=== PATIENT | female | born 1955 | race Caucasian/White ===

== ENCOUNTER 2016-12-15 08:43 | Inpatient (IN) ==
[2016-12-15] MEDS ORDERED: Vancomycin 1,000 MG VIAL IVPB ONE (09:58)
[2016-12-15] MEDS ORDERED: 0.9 % Sodium Chloride 1,000 ML IVC ONE (09:58)
--- NOTE | 2016-12-15 09:58 | Emergency Department Note ---
Disposition Clinical Impression: Cellulitis Disposition: Admitted As Inpatient Condition: Fair Referrals: Ashley Sandoval MD [Primary Care Provider] - Forms: ED Satisfaction Letter Time of Disposition: 11:34 General Adult HPI - General Chief complaint: ED Skin/Abscess/Foreign Body Stated complaint: "cellulitis" Time Seen by Provider: 12/15/16 09:36 Source: patient Mode of arrival: private vehicle Limitations: no limitations Nursing Notes Reviewed: Yes Vital Signs Reviewed: Yes - History of Present Illness HPI Narrative: 61-year-old female patient presents to the emergency department with complaint of cellulitis to her face. Patient was seen at an urgent care 48 hours ago and was prescribed Bactrim and Keflex. Patient states that she has been taking the medication as prescribed but has not had any improvement in her symptoms. Patient complains of redness and swelling to her forehead and upper eyelids. She denies any known exposures. She denies any allergic reactions. She denies any fever, however states that she has had some chills and rigors. She denies any nausea, vomiting, abdominal pain, chest pain, shortness of breath, dizziness or lightheadedness. Onset (ago): day(s) Location: face Radiation: non-radiation Pain Severity: severe Pain Scale: 10 Consistency: constant Improves with: nothing Worsens with: other (Palpation) Associated symptoms: Reports: fever/chills Treatments Prior to Arrival: other (Bactrim and Keflex) - Related Data Previous Rx's Medication Instructions Recorded Clindamycin [Cleocin] 150 mg PO Q6HR #8 capsule 11/04/15 OxyCODONE Immed Rel [Roxicodone 5 5 - 10 mg PO Q6HR PRN #30 tablet 11/04/15 MG] Allergies Allergy/AdvReac Type Severity Reaction Status Date / Time Erythromycin Base Allergy Rash Verified 10/26/15 15:10 Fish Containing Products Allergy Hives Verified 10/26/15 15:10 fish derived Allergy Hives Verified 10/26/15 15:10 fish oil Allergy Hives Verified 10/26/15 15:10 Hydromorphone [From Dilaudid] Allergy Rash Verified 10/26/15 15:10 morphine Allergy Rash Verified 10/26/15 15:10 All systems ED: reviewed and negative except as stated. Constitutional: Reports: chills. Denies: fever Eyes: Reports: other (Facial pain) Cardiovascular: Denies: chest pain Respiratory: Denies: cough, dyspnea Gastrointestinal: Denies: abdominal pain, nausea, vomiting Musculoskeletal: Denies: back pain, neck pain Integumentary: Reports: other (Redness and swelling to the face.). Denies: rash , abrasion, lesions Neurological: Denies: headache Psychiatric: Denies: anxiety, depression, suicidal thoughts, homicidal thoughts Past Medical History - Past Medical History Attestation: Yes The following information was validated with the patient. Source: patient, nursing notes reviewed Medical history: Reports: arthritis, GERD, RA, TIA, other Surgical history: Reports: , cataract, cholecystectomy, hysterectomy, knee replacement, other Psychiatric history: Reports: anxiety, depression - Social History Smoking Status: Never smoker Smokeless Tobacco Status: No Alcohol use: Reports: none Drug use: Reports: none Physical Exam - General Limitations: no limitations General appearance: alert, in no apparent distress - Head Head exam: atraumatic, normocephalic, normal inspection - Eye Eye exam: Present: normal appearance, PERRL - Neck Neck exam: Present: normal inspection, full ROM, trachea midline - Chest Chest inspection: Present: normal inspection, symmetric chest wall rise - Respiratory Respiratory exam: Present: normal lung sounds bilaterally. Absent: respiratory distress - Cardiovascular Cardiovascular exam: Present: regular rate, normal rhythm, normal heart sounds Course - Consultations Consultation #1: I discussed this patient's case with the hospitalist, Dr. Oseguera, he accepts the patient for admission. Vancomycin is currently being administered. Labs within normal limits except for some mild renal insufficiency for which the patient is receiving IV fluids. Patient verbalizes understanding and agreement with plan of care. Time: 11:40 Vital Signs Temperature 98.8 F 12/15/16 09:07 Pulse Rate 88 12/15/16 09:07 Respiratory Rate 16 12/15/16 09:07 Blood Pressure 109/66 12/15/16 09:07 O2 Sat by Pulse Oximetry 96 12/15/16 09:07 Temperature 98.8 F 12/15/16 09:07 Pulse Rate 74 12/15/16 11:10 Respiratory Rate 17 12/15/16 11:10 Blood Pressure 109/65 12/15/16 11:10 O2 Sat by Pulse Oximetry 95 12/15/16 11:10 Oxygen Delivery Oxygen Delivery Room Air Medical Decision Making - Lab Data Result diagrams: 12/15/16 10:18 12/15/16 10:18 Lab Results 12/15/16 12/15/16 Range/Units 10:18 10:18 WBC 4.3 (4.3-11.1) K/mcL RBC 3.42 L (3.82-4.97) M/mcL Hgb 11.5 (11.5-15.4) g/dL Hct 34.6 L (35.3-44.9) % MCV 101.2 H (83.0-100.0) fL MCH 33.6 H (28.0-33.3) pg MCHC 33.2 (31.6-35.5) g/dL RDW 13.5 (11.5-14.5) % Plt Count 154 (140-400) K/mcL MPV 10.1 (9.4-12.4) fL Seg Neutrophils % 80.0 % Band Neutrophils % 18.0 H (0-4) % Lymphocytes % 1.0 % Monocytes % 1.0 % Neutrophils # 4.2 (1.6-8.9) K/mcL Lymphocytes # 0.0 L (0.6-4.6) K/mcL Monocytes # 0.0 (0.0-1.3) K/mcL Dohle Bodies Present A (Not Present) Platelet Estimate Normal (Normal) Sodium 143 (136-145) mEq/L Potassium 3.3 L (3.5-4.5) mEq/L Chloride 107 (98-109) mEq/L Carbon Dioxide 27 (19-29) mEq/L BUN 39 H (7-20) mg/dL Creatinine 1.53 H (0.57-1.11) mg/dL Est GFR ( Amer) 42 L (> 60) Est GFR (Non-Af Amer) 35 L (> 60) BUN/Creatinine Ratio 25 (6-26) Glucose 121 H (70-99) mg/dL Calculated Osmolality 307 H (280-300) Calcium 8.2 L (8.6-10.8) mg/dL Attestation Statement - Attestation Attestation: For this encounter, I have reviewed the [employer] HELPER or PA documentation, treatment plan, and medical decision making; and I have had face to face time with this patient. 61-year-old presents with erythematous warm rash to the forehead and bilateral eyelids. The rash is not pruritic in nature. She was started on antibiotics without improvement. Skull examination erythema well demarcated rash on the forehead into the scalp and on the upper eyelids. No significant pain with eye movement does not appear to be a septal cellulitis. Labs show a normal white count. Patient was given IV vancomycin. The PA spoke to admitting physician were going to admit for IV antibiotics failure of outpatient treatment.
[2016-12-15] MEDS ORDERED: D5% in Water 250 ML ONE ×2 (10:21→10:40)
[2016-12-15 10:34] LABS: Hematocrit 34.6 % (35.3-44.9); Hemoglobin 11.5 g/dL (11.5-15.4); Mean Corpuscular HGB Conc 33.2 g/dL (31.6-35.5); Mean Corpuscular Hemoglobin 33.6 pg (28.0-33.3); Mean Corpuscular Volume 101.2 fL (83.0-100.0); Mean Platelet Volume 10.1 fL (9.4-12.4); Platelet Count 154 K/mcL (140-400); Red Blood Count 3.42 M/mcL (3.82-4.97); Red Cell Distribution Width 13.5 % (11.5-14.5)
[2016-12-15 10:47] LABS: Calcium 8.2 mg/dL (8.6-10.8); Potassium 3.3 mEq/L (3.5-4.5)
[2016-12-15 10:54] LABS: Neutrophils # 4.2 K/mcL (1.6-8.9); Platelet Estimate Normal (Normal)
[2016-12-15 10:55] LABS: Dohle Bodies Present (Not Present)
[2016-12-15] MEDS ORDERED: Vancomycin 1,000 MG in D5% in Water 250 ML IVPB ONE (11:01)
--- NOTE | 2016-12-15 13:09 | Event Note ---
Date of Encounter: 12/15/16 Time of Encounter: 13:05 Patient seen and examined with nurse jennifer. Patient with prior history of MRSA cellulitis, CKD stage 3 and what looks like 2ry hyperparathyroidism ( according to reviewing prior labs) presents to the hospital today 2 days after failed outpatient treatment with Bactrim and Keflex of cellulitis that started in the forehead. He notes that redness warmth tenderness is extending to involve all her 4 head and eyelids. She is afebrile without leukocytosis on arrival to the ER. She would be started on vancomycin Zosyn. Blood cultures. She also has rheumatoid arthritis and is on chronic prednisone therapy 10 mg daily and we will continue that. she is not hypotensive so there is no need for stress doses of steroids. Lesions do not appear allergic in nature or Due to vasculitis. Heparin and famotidine for DVT and peptic ulcer disease prophylaxis respectively. Full code. Inpatient admission
--- NOTE | 2016-12-15 15:41 | Internal Med History&Physical ---
Date of Encounter: 12/15/16 Time of Encounter: 15:00 Assessment and Plan (1) Cellulitis Current visit: Yes Status: Acute Assess: Patient presents with cellulitis of the scalp, forehead and eyelids which are erythematous, swollen, and warm to the touch. Patient has a history of MRSA, so skin culture ordered and contact precautions issued until culture is returned negative. Plan: Vancomycin ordered (pharmacy to dose) Zosyn ordered Apply cold compresses to face Pain medications continued Continue prednisone Culture ordered to rule out MRSA Qualifiers: Site of cellulitis: face Qualified Code(s): L03.211 - Cellulitis of face (2) TIA (transient ischemic attack) Current visit: Yes Status: Chronic Assess: Patient reports history of TIAs and family history of HD and MIs. Plan: Continue Plavix 0.9 NS IV fluids ordered at 60mL/hr Qualifiers: Transient cerebral ischemia type: unspecified Qualified Code(s): G45.9 - Transient cerebral ischemic attack, unspecified (3) Rheumatoid arthritis Current visit: Yes Status: Chronic Assess: Patient reports history of RA. Plan: Continue pain medications Continue prednisone Monitor patient for pain Qualifiers: Rheumatoid arthritis location: hand Rheumatoid factor presence: unspecified presence Laterality: bilateral Qualified Code(s): M06.9 - Rheumatoid arthritis, unspecified (4) Fibromyalgia Current visit: Yes Status: Chronic Assess: Patient reports history of fibromyalgia. Plan: Continue pain medications Continue prednisone Monitor patient for pain (5) DVT prophylaxis Current visit: Yes Status: Acute Assess: Patient placed on DVT prophylaxis due to inpatient status and sedentary nature due to pain related to RA and fibromyalgia. Plan: Continue Plavix Internal Medicine - H&P: HPI Chief complaint: Cellulitis Admitted From: Emergency Dept Plans for Post Hospital Care: Home History of present illness: Ms. Serrano is a 61 year old female who presents from the ED today with a chief complaint of cellulitis with swelling and erythema of the scalp, forehead , and eyes. Patient reports that she woke up this morning and her eyes were swollen shut and her scalp was burning and itching. She states that the swelling started on her scalp. Ms. Serrano also reports that she was seen for this same problem at her PCP's office 48 hours ago. She reports that she was told that it was cellulitis and was placed on Bactrim and Keflex. She came to the ED because her symptoms worsened. Patient denies fever but states that she has had chills. She denies nausea, vomiting, abdominal pain, chest pain, SOB, dizziness, syncope, or lightheadedness. Patient has history of MRSA. Patient will be admitted as inpatient with contact precautions until culture is returned as negative for MRSA. Past Med Surg Social Fam HX - Past Medical History Medical history: arthritis, fibromyalgia, GERD, osteoporosis, RA, renal disease , TIA, other (Excretion Pancreatic Insufficiency) Psychiatric history: anxiety, depression - Past Surgical History Surgical History: , cataract, cholecystectomy, hysterectomy, knee replacement, other - Social History Smoking Status: Never smoker Smokeless Tobacco Status: No Alcohol use: none Drug use: none Occupational status: unemployed Current living situation: Home Activity Level: Independent ambulation Recent Out of Country Travel Within the Last 8 Weeks: No Exposure or Possible Exposure to Illness During Travel: No - Family History Mother Race: Family Member Ethnicity: Non- Age at : 81 Hx Family Cardiac Disorders: Yes (Angina, HD) Hx Family Endocrine Disorder: Yes (DM) Hx Family Musculoskeletal Disorders: Yes (Fibromyalgia) Sister Race: Family Member Ethnicity: Non- Living Status: Still Living Hx Family Cardiac Disorders: Yes (HD) Father Race: Family Member Ethnicity: Non- Living Status: Hx Family Cardiac Disorders: Yes (HD, [place]) Hx Family Endocrine Disorder: Yes (DM) Internal Medicine - H&P: Meds Alprazolam [Xanax 0.5 MG Tablet] 0.5 mg PO BID PRN 12/15/16 [History] Bupropion HCl [Wellbutrin Xl] 300 mg PO DAILY 12/15/16 [History] Clopidogrel [Plavix] 75 mg PO DAILY 12/15/16 [History] Cyclobenzaprine [Flexeril] 10 mg PO BID 12/15/16 [History] Duloxetine HCl [Cymbalta] 60 mg PO BID 12/15/16 [History] Folic Acid 1 mg PO DAILY 12/15/16 [History] Furosemide [Lasix] 20 mg PO BID 12/15/16 [History] Glucosamn/Condroitn/C/Mn/[place] [[facility] Glucosamine Chondroitin Tb] 1 tab PO BID [History] HYDROcodone/Acet 7.5/325 mg [[place] 7.5-325 mg] 1 tab PO TID PRN 12/15/16 [ History] Hydroxychloroquine [Plaquenuil] 400 mg PO DAILY 12/15/16 [History] L. Acidophilus/Pectin, [place] [Acidophilus Probiotic Capsule] 1 cap PO DAILY [History] Lipase/Protease/Amylase [Cyn Rodriguez 24,000 Units Capsule] 1 cap PO BID MDD with snacks 12/15/16 [History] Lipase/Protease/Amylase [yCn Rodriguez 36,000 Units Capsule] 1 cap PO TIDWM 12/15/16 [History] Multivitamin [Multi-Day Vitamins] 1 tab PO DAILY 12/15/16 [History] Nystatin Cream [Mycostatin Cream] 1 appl TP BID PRN 12/15/16 [History] Pantoprazole Sodium [Protonix] 40 mg PO DAILY 12/15/16 [History] Potassium Chloride [Klor-Con 10] 10 meq PO BID 12/15/16 [History] PredniSONE 5 mg PO BID 12/15/16 [History] Pregabalin [Lyrica] 150 mg PO BID 12/15/16 [History] Promethazine HCl 12.5 mg PO Q6H PRN 12/15/16 [History] Allergies Erythromycin Base Allergy (Verified 12/15/16 16:49) Rash Fish Containing Products Allergy (Verified 12/15/16 16:49) Hives fish derived Allergy (Verified 12/15/16 16:49) Hives fish oil Allergy (Verified 12/15/16 16:49) Hives Hydromorphone [From Dilaudid] Allergy (Verified 12/15/16 16:49) Rash morphine Allergy (Verified 12/15/16 16:49) Rash All Systems PM: A 10-system review of systems was performed and is negative for pertinent findings except as documented above in the HPI. - Constitutional Constitutional: as per HPI, chills Additional comments: Patient reports chills over past few days related to her cellulitis. Denies fever. - EENT Eyes: as per HPI, no change in vision, no discharge, no pain, no photophobia Additional comments: Patient's eyelids are erythematous and warm bilaterally related to her cellulitis. Patient states they burn and itch. Ears: no ear discharge, no ear pain, no tinnitus Nose, mouth and throat: as per HPI, mouth lesions Additional comments: Patient reports she has sores inside her mouth occasionally. Denies sore throat , sinus issues, or nasal congestion. - Breasts Breasts: as per HPI - Cardiovascular Cardiovascular ROS IM: no chest pain, no diaphoresis, no dyspnea, no lightheadedness, no palpitations, no syncope - Respiratory Respiratory: no cough, no dyspnea, no wheezing, no excessive phlegm production - Gastrointestinal Gastrointestinal: no abdominal pain, no diarrhea, no hematemesis, no hematochezia, no melena, no nausea, no vomiting - Genitourinary Genitourinary: change in urinary stream, no dysuria, no flank pain, no hematuria Additional comments: Patient reports decreased urination due to being in Phase III kidney failure. Menstruation: as per HPI - Musculoskeletal Musculoskeletal ROS IM: as per HPI, arthralgias, myalgias Additional comments: Patient reports she has osteoporosis but has not been placed on medication for this. She also reports having fibromyalgia and Rheumatoid arthritis. - Integumentary Integumentary IM: as per HPI Additional comments: Patient reports erythema and swelling of the scalp, forehead, and eyes bilaterally. - Neurological Neurological ROS: no confusion, no convulsions, no focal weakness, no numbness, no tingling, no tremor(s) - Psychiatric Psychiatric: anxiety, depression Additional comments: Patient reports having feelings of depression and anxiety and sees a counselor at [facility] once a month for this, which she feels is not enough. Patient denies other psychiatric issues or suicidal ideations. - Endocrine Endocrine IM: as per HPI - Hematologic/Lymphatic Hematologic/Lymphatic: lymphadenopathy, no easy bruising Additional comments: Patient states she has lymphadenopathy bilaterally behind her ears which prevents her from wearing her glasses. Patient reports this is new since her cellulitis. - Allergic/Immunologic Allergic/Immunologic: as per HPI - Constitutional Vitals: Temp Pulse Resp BP Pulse Ox 98.1 F 69 13 113/71 99 12/15/16 13:45 12/15/16 13:45 12/15/16 13:45 12/15/16 13:45 12/15/16 13:45 General appearance: Present: cooperative, mild distress, A&O X 3, pleasant, obese, answers questions appropriately - Head Head exam: Present: atraumatic, normocephalic - Eye Eye exam: Present: PERRL, conjuntiva pink, sclera anicteric Pupils: Present: PERRL Additional comments: Patient's eyelids are erythematous and swollen bilaterally. - ENT ENT exam: Present: normal exam, normal external ear exam - Neck Neck exam general surgery: Present: lymphadenopathy Additional comments: Lymphadenopathy bilaterally behind ears. - Respiratory Respiratory exam: Present: CTAB. Absent: accessory muscle use, rales, rhonchi, wheezes - Cardiovascular Cardiovascular exam: Present: RRR, +S1, +S2. Absent: diastolic murmur, gallop, rubs, systolic murmur - GI/Abdominal GI/Abdominal exam: Present: normal bowel sounds, soft, no peritoneal signs. Absent: distended, tenderness - Rectal Rectal exam: Present: deferred - Additional comments: exam deferred. - Extremities Exam Extremities exam: Present: warm, radial pulses palpable and symetrical. Absent : calf tenderness, cyanotic, pedal edema - Back Exam Back exam: Present: normal inspection - Neurological Exam Neurological exam: Present: alert, oriented X3, reflexes normal, strengths equal and symetr throughout - Psychiatric Psychiatric exam: Present: normal affect, normal mood - Skin Skin exam: Present: dry, intact Internal Med - H&P Results - Labs CBC & Chem 7: 12/15/16 10:18 12/15/16 10:18
[2016-12-15] MEDS ORDERED: ALPRAZolam 0.5 MG TABLET PO PRN (16:19)
[2016-12-15] MEDS ORDERED: *HR* Promethazine 25 MG/ML VIAL IV PRN (16:19)
[2016-12-15] MEDS ORDERED: Nystatin Cream 15 GM TUBE TP PRN (16:19)
[2016-12-15] MEDS ORDERED: Vancomycin 1,500 MG in D5% in Water 250 ML IVPB SCH (17:00)
[2016-12-15] MEDS: 0.9 % Sodium Chloride 1,000 ML IVC SCH (17:20)
[2016-12-15] MEDS: *HR* HYDROcodone/Acet 7.5/325 mg TABLET PO PRN ×2 (17:20→23:11)
[2016-12-15] MEDS: Piperacillin/Tazobactam 3.375 GM in D5% in Water (Mini-Bag+) 100 ML IVPB SCH (17:21)
[2016-12-15] MEDS ORDERED: Potassium Chloride 20 MEQ, Lidocaine 1% 2 ML in D5% in Water 250 ML IVPB ONE (17:33)
[2016-12-15] MEDS ORDERED: Naloxone 0.4 MG/ML INJ IVP PRN (19:44)
[2016-12-15] MEDS ORDERED: Furosemide 40 MG TABLET PO SCH (21:00)
[2016-12-15] MEDS: Pregabalin 75 MG CAPSULE PO SCH (22:58)
[2016-12-15] MEDS: predniSONE 5 MG TABLET PO SCH (22:58)
[2016-12-15] MEDS: Vancomycin 1,500 MG in D5% in Water 250 ML IVPB SCH (23:02)
[2016-12-15] MEDS: [UNRECOGNIZED DRUG - OTHER] PO SCH (23:14)
[2016-12-16] MEDS: Nystatin SUSP 5 ML UD.LIQ PO SCH ×5 (02:12→21:33)
[2016-12-16] MEDS: Piperacillin/Tazobactam 3.375 GM in D5% in Water (Mini-Bag+) 100 ML IVPB SCH ×4 (02:12→17:08)
[2016-12-16 05:29] LABS: Basophils % 0.2 %; Eosinophils % 0.5 %; Hematocrit 30.3 % (35.3-44.9); Hemoglobin 10.3 g/dL (11.5-15.4); Immature Granulocytes % 0.5 % (0-4); Lymphocytes # 0.5 K/mcL (0.6-4.6); Lymphocytes % 11.7 %; Mean Corpuscular Hemoglobin 33.9 pg (28.0-33.3); Mean Corpuscular Volume 99.7 fL (83.0-100.0); Mean Platelet Volume 10.5 fL (9.4-12.4); Monocytes # 0.3 K/mcL (0.0-1.3); Monocytes % 7.3 %; Neutrophils # 3.5 K/mcL (1.6-8.9); Platelet Count 149 K/mcL (140-400); Red Blood Count 3.04 M/mcL (3.82-4.97); Red Cell Distribution Width 13.6 % (11.5-14.5); Segmented Neutrophils % 79.8 %
[2016-12-16 05:45] LABS: Magnesium 1.8 mg/dL (1.6-2.6); Potassium 3.6 mEq/L (3.5-4.5)
[2016-12-16 05:56] LABS: Platelet Estimate Normal (Normal)
[2016-12-16] MEDS: Multivit/Ca/Min/Fe/FA 1 TAB TABLET PO SCH (09:53)
[2016-12-16] MEDS: Folic Acid 1 MG TABLET PO SCH (09:53)
[2016-12-16] MEDS: *HR* HYDROcodone/Acet 7.5/325 mg TABLET PO PRN ×2 (09:53→21:32)
[2016-12-16] MEDS: BuPROPion XL (24 HR) 150 MG TABLET PO SCH (09:53)
[2016-12-16] MEDS: Lactobacillus 1 EACH CAP.SPRINK PO SCH (09:53)
[2016-12-16] MEDS: Pregabalin 75 MG CAPSULE PO SCH ×2 (09:54→21:32)
[2016-12-16] MEDS: [UNRECOGNIZED DRUG - OTHER] PO SCH ×2 (09:54→21:34)
[2016-12-16] MEDS: predniSONE 5 MG TABLET PO SCH ×2 (09:54→21:33)
[2016-12-16] MEDS: Vancomycin 1,500 MG in D5% in Water 250 ML IVPB SCH (12:52)
--- NOTE | 2016-12-16 13:27 | Internal Med Progress Note ---
Date of Encounter: 12/16/16 Time of Encounter: 13:26 - Assessment and plan (1) Cellulitis Current Visit: Yes Status: Acute Assessment and plan: Shows significant response to IV antibiotics. Continue IV vancomycin and Zosyn for now. Supportive care. Qualifiers: Site of cellulitis: face Qualified Code(s): L03.211 - Cellulitis of face (2) CKD (chronic kidney disease) Current Visit: Yes Status: Chronic Assessment and plan: Serum creatinine noted to be at baseline. Avoid nephrotoxic agents and dose antibiotics according to current creatinine clearance. Qualifiers: Chronic kidney disease stage: stage 3 (moderate) Qualified Code(s): N18.3 - Chronic kidney disease, stage 3 (moderate) (3) Rheumatoid arthritis Current Visit: Yes Status: Chronic Assessment and plan: Stable. Noted to be on multiple immunosuppressants. Qualifiers: Rheumatoid arthritis location: hand Rheumatoid factor presence: unspecified presence Laterality: bilateral Qualified Code(s): M06.9 - Rheumatoid arthritis, unspecified (4) Fibromyalgia Current Visit: Yes Status: Chronic - Subjective Interval history: Feels much better; improved redness, pain and swelling in her scalp, forehead and around her eyes; no fever/chills; - Constitutional Vitals: Temp Pulse Resp BP Pulse Ox 97.6 F 74 15 91/52 99 12/16/16 11:03 12/16/16 11:03 12/16/16 11:03 12/16/16 11:03 12/16/16 11:03 General appearance: Present: A&O X 3, obese, answers questions appropriately - Respiratory Respiratory exam: Present: CTAB. Absent: accessory muscle use, rales, rhonchi, wheezes - Cardiovascular Cardiovascular exam: Present: RRR, +S1, +S2. Absent: diastolic murmur, gallop, rubs, systolic murmur - GI/Abdominal GI/Abdominal exam: Present: normal bowel sounds, soft, no peritoneal signs. Absent: distended, tenderness - Skin Skin exam: Present: dry, erythema (significant improvement in erythema and edema in upper face, B/L periorbital edema; resolved scalp edema and erythema), intact Internal Medicine: Result - Labs CBC & Chem 7: 12/16/16 04:53 12/16/16 04:53 Labs: Short CBC 12/16/16 Range/Units 04:53 WBC 4.4 (4.3-11.1) K/mcL Hgb 10.3 L (11.5-15.4) g/dL Hct 30.3 L (35.3-44.9) % Plt Count 149 (140-400) K/mcL Neutrophils # 3.5 (1.6-8.9) K/mcL BMP 12/16/16 04:53 Sodium 140 Potassium 3.6 Chloride 108 Carbon Dioxide 23 BUN 29 H D Creatinine 1.44 H Glucose 102 H Calcium 8.0 L Consult Discharge Plan - Plan Referrals: Ashley Sandoval MD [Primary Care Provider] -
[2016-12-17] MEDS: Vancomycin 1,500 MG in D5% in Water 250 ML IVPB SCH (00:13)
[2016-12-17] MEDS: Piperacillin/Tazobactam 3.375 GM in D5% in Water (Mini-Bag+) 100 ML IVPB SCH ×3 (00:13→12:15)
[2016-12-17 05:16] LABS: Calcium 8.1 mg/dL (8.6-10.8); Potassium 3.8 mEq/L (3.5-4.5)
[2016-12-17 05:31] LABS: Basophils % 0.2 %; Eosinophils % 0.7 %; Hematocrit 29.8 % (35.3-44.9); Immature Granulocytes % 0.7 % (0-4); Lymphocytes # 0.8 K/mcL (0.6-4.6); Mean Corpuscular HGB Conc 33.6 g/dL (31.6-35.5); Mean Corpuscular Hemoglobin 33.9 pg (28.0-33.3); Mean Platelet Volume 10.7 fL (9.4-12.4); Monocytes # 0.4 K/mcL (0.0-1.3); Monocytes % 9.1 %; Neutrophils # 2.8 K/mcL (1.6-8.9); Platelet Count 148 K/mcL (140-400); Red Blood Count 2.95 M/mcL (3.82-4.97); Red Cell Distribution Width 13.3 % (11.5-14.5); Segmented Neutrophils % 69.3 %
[2016-12-17] MEDS: 0.9 % Sodium Chloride 1,000 ML IVC SCH (06:41)
[2016-12-17] MEDS: Multivit/Ca/Min/Fe/FA 1 TAB TABLET PO SCH (08:47)
[2016-12-17] MEDS: Lactobacillus 1 EACH CAP.SPRINK PO SCH (08:47)
[2016-12-17] MEDS: BuPROPion XL (24 HR) 150 MG TABLET PO SCH (08:47)
[2016-12-17] MEDS: Pregabalin 75 MG CAPSULE PO SCH (08:48)
[2016-12-17] MEDS: Nystatin SUSP 5 ML UD.LIQ PO SCH ×2 (08:48→12:15)
[2016-12-17] MEDS: Folic Acid 1 MG TABLET PO SCH (08:48)
[2016-12-17] MEDS: predniSONE 5 MG TABLET PO SCH (08:48)
[2016-12-17] MEDS: [UNRECOGNIZED DRUG - OTHER] PO SCH (08:48)
[2016-12-17 11:20] VITALS: BP 107/62
--- NOTE | 2016-12-17 14:14 | Discharge Summary ---
Date of Encounter: 12/17/16 Time of Encounter: 14:12 - Discharge Diagnosis (1) Cellulitis Priority: Primary Status: Acute Qualifiers: Site of cellulitis: face Qualified Code(s): L03.211 - Cellulitis of face (2) CKD (chronic kidney disease) Priority: Secondary Status: Chronic Qualifiers: Chronic kidney disease stage: stage 3 (moderate) Qualified Code(s): N18.3 - Chronic kidney disease, stage 3 (moderate) (3) Rheumatoid arthritis Priority: Secondary Status: Chronic Qualifiers: Rheumatoid arthritis location: hand Rheumatoid factor presence: unspecified presence Laterality: bilateral Qualified Code(s): M06.9 - Rheumatoid arthritis, unspecified (4) Fibromyalgia Priority: Secondary Status: Chronic - Discharge Medications Prescriptions: Amoxicillin/Clavulanate [Augmentin] 500 mg PO BIDWM #14 tablet Doxycycline 100 mg PO BID #14 capsule Home Medications: Alprazolam [Xanax 0.5 MG Tablet] 0.5 mg PO BID PRN 12/15/16 [History] Bupropion HCl [Wellbutrin Xl] 300 mg PO DAILY 12/15/16 [History] Clopidogrel [Plavix] 75 mg PO DAILY 12/15/16 [History] Cyclobenzaprine [Flexeril] 10 mg PO BID 12/15/16 [History] Duloxetine HCl [Cymbalta] 60 mg PO BID 12/15/16 [History] Folic Acid 1 mg PO DAILY 12/15/16 [History] Furosemide [Lasix] 20 mg PO BID 12/15/16 [History] Glucosamn/Condroitn/C/Mn/[place] [[facility] Glucosamine Chondroitin Tb] 1 tab PO BID [History] HYDROcodone/Acet 7.5/325 mg [[place] 7.5-325 mg] 1 tab PO TID PRN 12/15/16 [ History] Hydroxychloroquine [Plaquenuil] 400 mg PO DAILY 12/15/16 [History] L. Acidophilus/Pectin, [place] [Acidophilus Probiotic Capsule] 1 cap PO DAILY [History] Lipase/Protease/Amylase [Cyn Rodriguez 24,000 Units Capsule] 1 cap PO BID MDD with snacks 12/15/16 [History] Lipase/Protease/Amylase [Cyn Rodriguez 36,000 Units Capsule] 1 cap PO TIDWM 12/15/16 [History] Multivitamin [Multi-Day Vitamins] 1 tab PO DAILY 12/15/16 [History] Nystatin Cream [Mycostatin Cream] 1 appl TP BID PRN 12/15/16 [History] Pantoprazole Sodium [Protonix] 40 mg PO DAILY 12/15/16 [History] Potassium Chloride [Klor-Con 10] 10 meq PO BID 12/15/16 [History] PredniSONE 5 mg PO BID 12/15/16 [History] Pregabalin [Lyrica] 150 mg PO BID 12/15/16 [History] Promethazine HCl 12.5 mg PO Q6H PRN 12/15/16 [History] Amoxicillin/Clavulanate [Augmentin] 500 mg PO BIDWM #14 tablet 12/17/16 [Rx] Doxycycline 100 mg PO BID #14 capsule 12/17/16 [Rx] Allergies/Adverse Reactions: Allergies Erythromycin Base Allergy (Verified 12/15/16 16:49) Rash Fish Containing Products Allergy (Verified 12/15/16 16:49) Hives fish derived Allergy (Verified 12/15/16 16:49) Hives fish oil Allergy (Verified 12/15/16 16:49) Hives Hydromorphone [From Dilaudid] Allergy (Verified 12/15/16 16:49) Rash morphine Allergy (Verified 12/15/16 16:49) Rash Date of admission: 12/16/16 15:17 Primary care physician: Ashley Sandoval MD Discharging clinician: Vernell Butcher Anticipated date of discharge: 12/17/16 - Patient Status Disposition: Home, Self-Care Condition: Fair Functional capacity at discharge: independent ambulation Overall status at discharge: patient is progressing back to baseline - Discharge Instructions Instructions: Cellulitis (DC), Periorbital Cellulitis in Adults (DC) Follow Up With: Ashley Sandoval MD [Primary Care Provider] - - Diet and Activity Activity: resume usual activities as tolerated Diet: low fat, low cholesterol, low salt diet, other (renal ) Hospital course: Ms. Serrano is a 61 year old female admitted with facial cellulitis, after having failed outpatient treatment. She was started on IV hydration and IV antibiotics-vancomycin and Zosyn. Blood cultures remained negative. She showed significant clinical improvement with resolved erythema, edema and tenderness on her forehead and scalp and periorbital areas. She is currently medically stable for discharge on oral antibiotics. - Time Spent with Patient Total time spent providing and/or coordinating discharge services: Greater than 30 minutes (45 min) - Constitutional Vitals: Temp Pulse Resp BP Pulse Ox 98.0 F 69 16 107/62 93 12/17/16 11:19 12/17/16 11:19 12/17/16 11:19 12/17/16 11:19 12/17/16 11:19 General appearance: Present: A&O X 3, obese, answers questions appropriately - Cardiovascular Cardiovascular exam: Present: RRR, +S1, +S2. Absent: diastolic murmur, gallop, rubs, systolic murmur - Skin Skin exam: Present: dry, intact Additional comments: improving erythema, edema, and tenderness in B/L periorbital areas, frontal scalp and forehead;
[2016-12-17] MEDS ORDERED: Aminoglycoside Consult 1 EACH MC ONE (15:24)
[2016-12-17] MEDS ORDERED: Piperacillin/Tazobactam 3.375 GM in D5% in Water (Mini-Bag+) 100 ML IVPB SCH (20:00)
== END 2016-12-17 15:25 | disposition home or self-care (01) | DRG 603 ==
LOC: 3BNU 08:43 → EMEROO 08:43 → SUATTDRO 12:30 → 3BNU 13:32
PROVIDERS: ADMIT Hospitalist; ATTEND Internal Medicine

== ENCOUNTER 2019-03-09 12:37 | Inpatient (IN) ==
[2019-03-09] MEDS ORDERED: Ondansetron ODT 4 MG TAB.RAPDIS SL ONE (13:14)
[2019-03-09] MEDS ORDERED: *HR* FentaNYL (PF) 100 MCG/2 ML VIAL IM ONE (13:14)
[2019-03-09] MEDS ORDERED: Ketorolac 15 MG/ML VIAL IM ONE (13:15)
--- NOTE | 2019-03-09 13:24 | Emergency Department Note ---
Disposition Clinical Impression: Wound infection Disposition: Admitted As Inpatient Condition: Fair Time of Disposition: 14:20 General Adult HPI - General Chief complaint: ED General Medical Stated complaint: Knee problem Time Seen by Provider: 03/09/19 12:59 Source: patient, family Mode of arrival: private vehicle Limitations: no limitations Nursing Notes Reviewed: Yes Vital Signs Reviewed: Yes - History of Present Illness Pt Subjective Complaint: right knee pain, right wrist pain Onset (ago): day(s) Location: right, upper extremity, lower extremity Radiation: non-radiation Pain Severity: severe Pain Scale: 10 Quality: stabbing, aching, sharp Consistency: constant, Worsening Improves with: nothing Worsens with: movement, other (weight bearing) Treatments Prior to Arrival: other (Saw PCP on Monday and was started on Clindamycin) - Related Data Home Medications Medication Instructions Recorded Confirmed Bupropion HCl [Wellbutrin Xl] 300 mg PO DAILY 12/15/16 03/09/19 Duloxetine HCl [Cymbalta] 60 mg PO BID 12/15/16 03/09/19 Folic Acid 1 mg PO DAILY 12/15/16 03/09/19 Glucosamn/[place]/C/Mn/[place] 1 tab PO BID 12/15/16 03/09/19 [[facility] Glucosamine Chondroitin Tb] Hydroxychloroquine [Plaquenuil] 400 mg PO DAILY 12/15/16 03/09/19 L. Acidophilus/Pectin, [place] 1 cap PO DAILY 12/15/16 03/09/19 [Acidophilus Probiotic Capsule] Lipase/Protease/Amylase [Cyn Rodriguez 1 cap PO BID MDD with snacks 12/15/16 03/09/19 24,000 Units Capsule] Lipase/Protease/Amylase [Cyn Rodriguez 1 cap PO TIDWM 12/15/16 03/09/19 36,000 Units Capsule] Multivitamin [Multi-Day Vitamins] 1 tab PO DAILY 12/15/16 03/09/19 Nystatin Cream [Mycostatin Cream] 1 appl TP BID PRN 12/15/16 03/09/19 Pantoprazole Sodium [Protonix] 40 mg PO DAILY 12/15/16 03/09/19 Pregabalin [Lyrica] 150 mg PO BID 12/15/16 03/09/19 Promethazine HCl 12.5 mg PO Q6H PRN 12/15/16 03/09/19 Methocarbamol [Robaxin-750] 750 mg PO HS 02/26/18 03/09/19 Tocilizumab [Actemra] 162 mg SQ QWEEK 02/26/18 03/09/19 traZODone [TraZODone] 50 - 100 mg PO HS 02/26/18 03/09/19 BuPROPion SR (12 HR) [Wellbutrin 150 mg PO DAILY 02/18/19 03/09/19 SR] Previous Rx's Medication Instructions Recorded Lidocaine Patch [Lidoderm 5% patch] 1 each TP DAILY PRN #5 adh..patch 02/01/17 Meclizine [Antivert] 25 mg PO TID #15 tablet 10/13/18 Oxycodone HCl/Acetaminophen 1 each PO Q6H PRN 2 Days #8 tablet 02/28/19 [Percocet 5-325 mg Tablet] Allergies Allergy/AdvReac Type Severity Reaction Status Date / Time Erythromycin Base Allergy Rash Verified 02/28/19 19:20 Fish Containing Products Allergy Hives Verified 02/28/19 19:20 fish derived Allergy Hives Verified 02/28/19 19:20 fish oil Allergy Hives Verified 02/28/19 19:20 hydromorphone [From Dilaudid] Allergy Rash Verified 02/28/19 19:20 morphine Allergy Rash Verified 02/28/19 19:20 All systems ED: reviewed and negative except as stated. Review of Systems: As Per HPI Constitutional: Reports: fever, chills. Denies: weakness Cardiovascular: Denies: chest pain, palpitations, dyspnea on exertion, orthopnea, syncope Respiratory: Denies: cough, dyspnea, wheezes Gastrointestinal: Denies: abdominal pain, nausea, vomiting Genitourinary: Denies: dysuria Musculoskeletal: Reports: as per HPI, joint swelling, arthralgia. Denies: back pain, neck pain Integumentary: Denies: rash, lesions Neurological: Reports: as per HPI, abnormal gait. Denies: headache, weakness, vertigo Hematological/Lymphatic: Denies: easy bleeding, easy bruising, lymphadenopathy Past Medical History - Past Medical History Attestation: Yes The following information was validated with the patient. 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 Absent: scleral icterus, conjunctival injection, miosis, mydriasis, periorbital swelling - ENT ENT exam: mucous membranes moist - Neck Neck exam: Present: normal inspection, trachea midline. Absent: meningismus - Respiratory Respiratory exam: Present: normal lung sounds bilaterally. Absent: respiratory distress - Cardiovascular Cardiovascular exam: Present: regular rate, normal rhythm - Extremities Exam Extremities exam: Present: tenderness, normal capillary refill. Absent: calf tenderness - Expanded Upper Extremity Exam Shoulder exam: Present: normal inspection, full ROM. Absent: tenderness Arm exam: Present: normal inspection. Absent: tenderness Elbow exam: Present: normal inspection, full ROM. Absent: tenderness Forearm/Wrist exam: Present: tenderness, other (Well-healing surgical wound, right wrist and distal forearm with no erythema, edema or purulent drainage. Sutures in place. No dehiscence.). Absent: swelling, ecchymosis, deformity, crepitus, erythema Hand exam: Present: swelling, ecchymosis (Dorsal hand and all five fingers). Absent: normal inspection, tenderness, deformity, crepitus, dislocation, erythema Neuromotor exam: Normal: thumb opposition, thumb IP flexion, thumb adduction, fingers 2-5 abduction, other (Wrist extension not tested given recent surgical plating of radius) Neurosensory exam: Normal: radial nerve, ulnar nerve, median nerve Hand tendon exam: Normal: flexor digitorum profundus (location), flexor digitorum superficialis (location), extensor tendon (location) Vascular exam: Normal: capillary refill, radial pulse, ulnar pulse - Expanded Lower Extremity Exam Hip/Pelvis exam: Present: full ROM Upper leg exam: Absent: tenderness Knee exam: Present: tenderness, swelling, laceration (2cm circular wound on mid patella with cloudy pink drainage. No FB seen. Also, a 4cm bullae on robert- medial, inferior knee.), ecchymosis, erythema, knee extension intact. Absent: full ROM, deformity, crepitus, dislocation Lower leg exam: Present: ecchymosis, Achilles tendon intact. Absent: tenderness, swelling, deformity, crepitus, erythema, Homans' sign Ankle exam: Present: normal inspection, full ROM. Absent: tenderness, swelling Foot/toe exam: Present: normal inspection, full ROM. Absent: tenderness, swelli ng Neurovascular/Tendon exam: Present: normal capillary refill, normal fine/light touch. Absent: pulse deficit, motor deficit, sensory deficit, tendon deficit, extremity cold to touch, pallor, foot drop, significant pain with passive ROM of distal joint Gait: not tested/not observed - Neurological Exam Neurological exam: Present: alert, oriented X3, CN II-XII intact. Absent: motor sensory deficit - Psychiatric Psychiatric exam: Present: normal affect, normal mood - Skin Skin exam: Present: warm, dry, normal color, erythema (as above) Course Course Narrative: Patient transfer evaluation of right wrist and right knee pain. She fell on the February and landed on a concrete block. She injured her right wrist and her right knee. She was seen here and was diagnosed with a wrist fracture and right knee contusion with laceration and hematoma. She followed up with ortho and had ORIF of the radius fracture as well as aspiration of a right knee hematoma. She has had continued pain and swelling in the right knee and noticed some redness on Monday. Monday she saw her PCP and was started on clindamycin. The swelling, pain and redness have continued. Today she was unable to walk due to the pain and also has had fever and chills. Additionally, she complained of pain in the right wrist upon arrival and was noted to have delayed cap refill in the fingers. The Antwon wrap on the splint was removed, which relieved the pain in her right upper extremity. Cap refill is normal in all right fingers. Sensation is now normal in all right fingers as well. She does have notable ecchymosis to the dorsal aspect of the right hand and all five fingers. The wrist operative wound looks very good. No signs of infection. The knee has an open wound on the patella that is draining cloudy pink fluid. The knee is very warm and mildly erythematous. She has decreased range of motion of the right knee second pain. X-rays meds, fluids and antibiotics have been started. - Reevaluation(s) Reevaluation #1: Pain a little better. Still having chills. VSS. Labs pending Reevaluation #2: Shaking chills and diaphoresis. Additional meds and fluids ordered. Time: 15:42 - Consultations Consultation #1: Case discussed with Dr. Kamara. He recommends admission for IV antibiotics. He will see the patient tomorrow. Vital Signs Temperature 98.9 F 03/09/19 12:40 Pulse Rate 58 03/09/19 12:40 Respiratory Rate 20 03/09/19 12:40 Blood Pressure 185/67 03/09/19 12:40 O2 Sat by Pulse Oximetry 100 03/09/19 12:40 Temperature 98.5 F 03/09/19 17:40 Pulse Rate 56 03/09/19 15:34 Respiratory Rate 20 03/09/19 17:40 Blood Pressure 176/78 03/09/19 17:40 O2 Sat by Pulse Oximetry 98 03/09/19 15:34 Oxygen Delivery Oxygen Delivery Room Air Medical Decision Making - Medical Records Medical records reviewed: Yes I reviewed the patient's medical records. - Lab Data Lab results reviewed: Yes I reviewed the patient's lab results. Lab results narrative: Laboratory Last Values WBC 4.6 K/mcL (4.3-11.1) 03/09/19 14:29 RBC 3.17 M/mcL (3.82-4.97) L 03/09/19 14:29 Hgb 10.9 g/dL (11.5-15.4) L 03/09/19 14:29 Hct 32.6 % (35.3-44.9) L 03/09/19 14:29 MCV 102.8 fL (83.0-100.0) H 03/09/19 14:29 MCH 34.4 pg (28.0-33.3) H 03/09/19 14:29 MCHC 33.4 g/dL (31.6-35.5) 03/09/19 14:29 RDW 13.7 % (11.5-14.5) 03/09/19 14:29 Plt Count 179 K/mcL (140-400) 03/09/19 14:29 MPV 10.0 fL (9.4-12.4) 03/09/19 14: Immature Gran % 1.1 % (0-4) 03/09/19 14: Seg Neutrophils % 71.8 % 03/09/19 14:29 Lymphocytes % 12.5 % 03/09/19 14:29 Monocytes % 13.8 % 03/09/19 14:29 Eosinophils % 0.4 % 03/09/19 14: Basophils % 0.4 % 03/09/19 14:29 Neutrophils # 3.3 K/mcL (1.6-8.9) 03/09/19 14: Lymphocytes # 0.6 K/mcL (0.6-4.6) 03/09/19 14: Monocytes # 0.6 K/mcL (0.0-1.3) 03/09/19 14: Eosinophils # 0.0 K/mcL (0.0-0.6) 03/09/19 14: Basophils # 0.0 K/mcL (0.0-0.2) 03/09/19 14:29 Sodium 139 mEq/L (136-145) 03/09/19 14:29 Potassium 3.8 mEq/L (3.5-5.1) 03/09/19 14:29 Chloride 109 mEq/L (98-107) H 03/09/19 14:29 Carbon Dioxide 20 mEq/L (23-29) L 03/09/19 14:29 BUN 14 mg/dL (8-23) 03/09/19 14:29 Creatinine 0.75 mg/dL (0.60-1.20) 03/09/19 14:29 Est GFR ( Amer) > 60 (> 60) 03/09/19 14:29 Est GFR (Non-Af Amer) > 60 (> 60) 03/09/19 14:29 BUN/Creatinine Ratio 19 (6-26) 03/09/19 14:29 Glucose 103 mg/dL (70-105) 03/09/19 14:29 Calculated Osmolality 289 (280-300) 03/09/19 14:29 Lactic Acid 0.8 mmol/L (0.5-2.2) 03/09/19 14:29 Calcium 8.7 mg/dL (8.6-10.3) 03/09/19 14:29 Result diagrams: 03/09/19 14:29 03/09/19 14:29 Lab Results 03/09/19 03/09/19 03/09/19 Range/Units 14:29 14:29 14:29 WBC 4.6 (4.3-11.1) K/mcL RBC 3.17 L (3.82-4.97) M/mcL Hgb 10.9 L (11.5-15.4) g/dL Hct 32.6 L (35.3-44.9) % MCV 102.8 H (83.0-100.0) fL MCH 34.4 H (28.0-33.3) pg MCHC 33.4 (31.6-35.5) g/dL RDW 13.7 (11.5-14.5) % Plt Count 179 (140-400) K/mcL MPV 10.0 (9.4-12.4) fL Immature Gran % 1.1 (0-4) % Seg Neutrophils % 71.8 % Lymphocytes % 12.5 % Monocytes % 13.8 % Eosinophils % 0.4 % Basophils % 0.4 % Neutrophils # 3.3 (1.6-8.9) K/mcL Lymphocytes # 0.6 (0.6-4.6) K/mcL Monocytes # 0.6 (0.0-1.3) K/mcL Eosinophils # 0.0 (0.0-0.6) K/mcL Basophils # 0.0 (0.0-0.2) K/mcL Sodium 139 (136-145) mEq/L Potassium 3.8 (3.5-5.1) mEq/L Chloride 109 H (98-107) mEq/L Carbon Dioxide 20 L (23-29) mEq/L BUN 14 (8-23) mg/dL Creatinine 0.75 (0.60-1.20) mg/dL Est GFR ( Amer) > 60 (> 60) Est GFR (Non-Af Amer) > 60 (> 60) BUN/Creatinine Ratio 19 (6-26) Glucose 103 (70-105) mg/dL Calculated Osmolality 289 (280-300) Lactic Acid 0.8 (0.5-2.2) mmol/L Calcium 8.7 (8.6-10.3) mg/dL - Radiology Data Radiology results reviewed: Yes I reviewed the patient's radiology results. Knee X-Ray 03/09/19 14:18 IMPRESSION: Infrapatellar soft tissue masslike swelling suggests possibility of a hematoma or abscess. D/ / 03/09/2019 15:18:49 Collins Zarate MD / Niki Oliveira Interpreting Provider: Collins Zarate MD
[2019-03-09] MEDS ORDERED: Tdap (Boostrix) Vaccine 0.5 ML SYRINGE IM ONE (14:17)
[2019-03-09] MEDS ORDERED: Piperacillin/Tazobactam 3.375 GM in 0.9 % Sodium Chloride Mini Bag 100 ML IVPB ONE (14:18)
[2019-03-09] MEDS ORDERED: *HR* Nalbuphine 10 MG/ML AMPUL IV ONE (14:19)
[2019-03-09 14:41] LABS: Basophils % 0.4 %; Eosinophils % 0.4 %; Hematocrit 32.6 % (35.3-44.9); Hemoglobin 10.9 g/dL (11.5-15.4); Immature Granulocytes % 1.1 % (0-4); Lymphocytes # 0.6 K/mcL (0.6-4.6); Lymphocytes % 12.5 %; Mean Corpuscular HGB Conc 33.4 g/dL (31.6-35.5); Mean Corpuscular Hemoglobin 34.4 pg (28.0-33.3); Mean Corpuscular Volume 102.8 fL (83.0-100.0); Monocytes # 0.6 K/mcL (0.0-1.3); Monocytes % 13.8 %; Neutrophils # 3.3 K/mcL (1.6-8.9); Platelet Count 179 K/mcL (140-400); Red Blood Count 3.17 M/mcL (3.82-4.97); Red Cell Distribution Width 13.7 % (11.5-14.5); Segmented Neutrophils % 71.8 %; White Blood Count 4.6 K/mcL (4.3-11.1)
[2019-03-09 14:59] LABS: BUN/Creatinine Ratio 19 (6-26); Blood Urea Nitrogen 14 mg/dL (8-23); Calcium 8.7 mg/dL (8.6-10.3); Carbon Dioxide 20 mEq/L (23-29); Chloride 109 mEq/L (98-107); Glucose 103 mg/dL (70-105); Osmolality,Calculated 289 (280-300); Potassium 3.8 mEq/L (3.5-5.1); Sodium 139 mEq/L (136-145); eGFR For African Americans > 60 (> 60); eGFR For Non-African Americans > 60 (> 60)
[2019-03-09] MEDS ORDERED: 0.9 % Sodium Chloride 1,000 ML IVC ONE (15:52)
[2019-03-09] MEDS ORDERED: *HR* Promethazine 25 MG/ML VIAL IVP PRN (17:06)
[2019-03-09] MEDS ORDERED: Naloxone 0.4 MG/ML INJ IVP PRN (17:06)
[2019-03-09] MEDS ORDERED: Ondansetron ODT 4 MG TAB.RAPDIS SL PRN (17:06)
--- NOTE | 2019-03-09 17:47 | Internal Med History&Physical ---
Date of Encounter: 03/09/19 Time of Encounter: 17:36 Internal Medicine - H&P: HPI Chief complaint: Right knee pain History of present illness: Ms. Serrano is a 64 year old female with history of RA on immunosuppressive therapy and right knee prosthesis and recent fall onto her right knee causing hematoma status post drainage presents with concern for infection and right knee. Patient fell onto her right knee and right arm on the February. She was seen in the emergency department for this. Right humerus and forearm with evidence of comminuted impacted fracture of the distal radius (status post splinting) and right knee with evidence of hematoma. Has been followed by orthopedics since discharge. Was seen March 06 in the orthopedic office and right knee appeared acutely infected. Per patient, knee was drained and patient was placed on clindamycin. Knee has been draining since then. Initially draining bloody fluid, however, now fluid appears green. No improvement on clindamycin. Subjective fevers and chills. In the ED, VSS. WBC 4.6. Cr .75. X-ray with significant soft tissue swelling. Started on vancomycin and Zosyn and admitted to medicine. Ortho Evra will see patient tomorrow. Past Med Surg Social Fam HX - Past Medical History Medical history: arthritis, fibromyalgia, GERD, RA, renal disease, TIA Additional medical history: insufficient pancreatic enzyme. Stage 3 Renal disease Psychiatric history: depression - Past Surgical History Surgical History: , cholecystectomy, hysterectomy, knee replacement, other Additional surgical history: aortic repair 2015. bowel resection. gastric bypass - Social History Smoking Status: Never smoker Smokeless Tobacco Status: No Alcohol use: none Drug use: none - Family History Mother Family Member Ethnicity: Non- Hx Family Cardiac Disorders: Yes (Angina, HD) Hx Family Endocrine Disorder: Yes (DM) Sister Family Member Ethnicity: Non- Living Status: Still Living Hx Family Cardiac Disorders: Yes (HD) Father Family Member Ethnicity: Non- Living Status: Hx Family Cardiac Disorders: Yes (HD, MA) Hx Family Endocrine Disorder: Yes (DM) Internal Medicine - H&P: Meds Bupropion HCl [Wellbutrin Xl] 300 mg PO DAILY 12/15/16 [History] Duloxetine HCl [Cymbalta] 60 mg PO BID 12/15/16 [History] Folic Acid 1 mg PO DAILY 12/15/16 [History] Glucosamn/Condroitn/C/Mn/[place] [[facility] Glucosamine Chondroitin Tb] 1 tab PO BID 12/15/16 [History] Hydroxychloroquine [Plaquenuil] 400 mg PO DAILY 12/15/16 [History] L. Acidophilus/Pectin, [place] [Acidophilus Probiotic Capsule] 1 cap PO DAILY 12/15/16 [History] Lipase/Protease/Amylase [Cyn Rodriguez 24,000 Units Capsule] 1 cap PO BID MDD with snacks 12/15/16 [History] Lipase/Protease/Amylase [Cyn Rodriguez 36,000 Units Capsule] 1 cap PO TIDWM 12/15/16 [History] Multivitamin [Multi-Day Vitamins] 1 tab PO DAILY 12/15/16 [History] Nystatin Cream [Mycostatin Cream] 1 appl TP BID PRN 12/15/16 [History] Pantoprazole Sodium [Protonix] 40 mg PO DAILY 12/15/16 [History] Pregabalin [Lyrica] 150 mg PO BID 12/15/16 [History] Promethazine HCl 12.5 mg PO Q6H PRN 12/15/16 [History] Lidocaine Patch [Lidoderm 5% patch] 1 each TP DAILY PRN #5 adh..patch 02/01/17 [Rx] Methocarbamol [Robaxin-750] 750 mg PO HS 02/26/18 [History] Tocilizumab [Actemra] 162 mg SQ QWEEK 02/26/18 [History] traZODone [TraZODone] 50 - 100 mg PO HS 02/26/18 [History] Meclizine [Antivert] 25 mg PO TID #15 tablet 10/13/18 [Rx] BuPROPion SR (12 HR) [Wellbutrin SR] 150 mg PO DAILY 02/18/19 [History] Oxycodone HCl/Acetaminophen [Percocet 5-325 mg Tablet] 1 each PO Q6H PRN 2 Days #8 tablet 02/28/19 [Rx] Allergy/AdvReac Type Severity Reaction Status Date / Time Erythromycin Base Allergy Rash Verified 02/28/19 19:20 Fish Containing Products Allergy Hives Verified 02/28/19 19:20 fish derived Allergy Hives Verified 02/28/19 19:20 fish oil Allergy Hives Verified 02/28/19 19:20 hydromorphone [From Dilaudid] Allergy Rash Verified 02/28/19 19:20 morphine Allergy Rash Verified 02/28/19 19:20 All Systems PM: A 10-system review of systems was performed and is negative for pertinent findings except as documented above in the HPI. Review of systems: General: Fevers / Weight loss / Night sweats / Nausea / Vomiting Eyes: Blurry Vision / Change in Vision HENT: Ear Pain / Ear Drainage / Rhinorrhea / Throat Pain / Lymphadenopathy Cardiovascular: Chest Pain / Palpatations / Orthopnea / PAIZ / Weight gain Lungs: Dyspnea / Wheezing / Cough / Sputum production / Pleurisy Abdomen: Abdomen pain / Abdominal distention Extremities: LE edema / Ext pain / Ext erythema Skin: Rashes / Abrasions / Contusions Psych: Hallucinations / Anxiety / Depression Neuro: Weakness / Numbness / Tingling / Facial Droop / Dysphagia - Constitutional Vitals: Temp Pulse Resp BP Pulse Ox 98.1 F 56 20 169/108 98 03/09/19 15:34 03/09/19 15:34 03/09/19 15:34 03/09/19 15:34 03/09/19 15:34 Exam: General: Ill-appearing and in no acute distress HEENT: No erythema of posterior pharynx. No exudates. Lymphatics: No mandibular or cervical lymphadenopathy Cardiovascular: RRR. No murmurs. No chest wall tenderness. Lungs: Clear to auscelltation bilaterally. Regular chest rise. Abdomen: Non-tender. No rebound or gaurding. Nl bowel sounds. Extremities: No edema. 2+ pulses radial and pedal pulses Skin: No rahses, abrasions, or contusions. Nl cap refill. MSK: R knee with significant soft-tissue swelling and erythema surrounding joint. Clear-pink drainage. ROM limited by [pain. Psych: Nl attention. A&Ox3 Neuro: home hospice aide II-XII intact. 5/5 strength. Sensation to light touch and pinprick intact. Internal Med - H&P Results - Labs CBC & Chem 7: 03/09/19 14:29 03/09/19 14:29 Labs: Short CBC 03/09/19 Range/Units 14:29 WBC 4.6 (4.3-11.1) K/mcL Hgb 10.9 L (11.5-15.4) g/dL Hct 32.6 L (35.3-44.9) % Plt Count 179 (140-400) K/mcL Neutrophils # 3.3 (1.6-8.9) K/mcL BMP 03/09/19 14:29 Sodium 139 Potassium 3.8 Chloride 109 H Carbon Dioxide 20 L BUN 14 Creatinine 0.75 Glucose 103 Calcium 8.7 - Impressions ITS Impressions Knee X-Ray 03/09/19 14:18 IMPRESSION: Infrapatellar soft tissue masslike swelling suggests possibility of a hematoma or abscess. D/ / 03/09/2019 15:18:49 Collins Zarate MD / Niki Oliveira Interpreting Provider: Collins Zarate MD - Assessment and Plan (1) Wound infection Current Visit: Yes Status: Acute Assessment and plan: with history of RA on immunosuppresive therapy and right knee prosthesis and recent fall onto her right knee causing hematoma status post drainage presents with concern for infection and right knee. -No systemic signs of infection and did not meet sepsis criteria on admission, however, blood cultures obtained and will follow up -Ortho aware and will see patient tomorrow. We will defer further imaging to ortho PLAN: - Vancomycin and cefepime - Follow cultures - Pain control - Orthopedist see patient tomorrow - NPO@MA for possible procedure (2) Wrist fracture, right Current Visit: Yes Status: Acute Assessment and plan: Currently in a splint and recovering appropriately. - Pain control Qualifiers: Encounter type: subsequent encounter Fracture type: closed Fracture healing: with routine healing Qualified Code(s): S62.101D - Fracture of unspecified carpal bone, right wrist, subsequent encounter for fracture with routine healing (3) Immunosuppressed status Current Visit: Yes Status: Acute (4) Rheumatoid arthritis Current Visit: Yes Status: Acute Assessment and plan: History of rheumatoid arthritis on immunosuppressive therapy. - Hold biologic in setting of acute infection - Home Plaquenil Qualifiers: Rheumatoid arthritis location: wrist Rheumatoid factor presence: unspeci fied presence Laterality: unspecified laterality Qualified Code(s): M06.9 - Rheumatoid arthritis, unspecified (5) Immunosuppression due to drug therapy Current Visit: Yes Status: Acute Assessment and plan: Per above - Time Spent With Patient Total time spent is greater than 50% in coordination of care (as documented) at patient's floor/unit and/or counseling patient: Greater than 35 minutes
[2019-03-09] MEDS ORDERED: Nystatin Cream 15 GM TUBE TP PRN (18:34)
[2019-03-09] MEDS: Methocarbamol 750 MG TABLET PO SCH (20:36)
[2019-03-09] MEDS: Pregabalin 75 MG CAPSULE PO SCH (20:37)
[2019-03-09] MEDS: [UNRECOGNIZED DRUG - MIXTURE] PO SCH (20:43)
[2019-03-09] MEDS: *HR* OxyCODONE Immed Rel 5 MG TABLET PO PRN (20:50)
[2019-03-10] MEDS: Cefepime HCl 2,000 MG in Water for inj. (sterile) 20 ML IVP SCH ×2 (01:20→10:13)
[2019-03-10 02:54] LABS: Basophils % 0.6 %; Eosinophils # 0.1 K/mcL (0.0-0.6); Eosinophils % 2.1 %; Hematocrit 29.8 % (35.3-44.9); Immature Granulocytes % 0.9 % (0-4); Lymphocytes # 0.8 K/mcL (0.6-4.6); Lymphocytes % 24.3 %; Mean Corpuscular HGB Conc 33.6 g/dL (31.6-35.5); Mean Corpuscular Hemoglobin 34.2 pg (28.0-33.3); Mean Corpuscular Volume 102.1 fL (83.0-100.0); Mean Platelet Volume 10.2 fL (9.4-12.4); Monocytes # 0.6 K/mcL (0.0-1.3); Monocytes % 17.3 %; Neutrophils # 1.8 K/mcL (1.6-8.9); Platelet Count 178 K/mcL (140-400); Red Blood Count 2.92 M/mcL (3.82-4.97); Segmented Neutrophils % 54.8 %; White Blood Count 3.3 K/mcL (4.3-11.1)
[2019-03-10 03:11] LABS: BUN/Creatinine Ratio 18 (6-26); Blood Urea Nitrogen 16 mg/dL (8-23); Carbon Dioxide 22 mEq/L (23-29); Chloride 112 mEq/L (98-107); Glucose 100 mg/dL (70-105); Osmolality,Calculated 297 (280-300); Potassium 3.6 mEq/L (3.5-5.1); Sodium 143 mEq/L (136-145); eGFR For African Americans > 60 (> 60); eGFR For Non-African Americans > 60 (> 60)
[2019-03-10] MEDS: *HR* Enoxaparin 40 MG/0.4 ML SYRINGE SQ SCH (05:27)
[2019-03-10] MEDS: *HR* OxyCODONE Immed Rel 5 MG TABLET PO PRN ×3 (05:28→17:28)
[2019-03-10] MEDS ORDERED: *HR* OxyCODONE/APAP 5/325 TABLET PO PRN (08:15)
[2019-03-10] MEDS ORDERED: BuPROPion SR (12 HR) 150 MG TABLET PO SCH (09:00)
[2019-03-10] MEDS: BuPROPion XL (24 HR) 150 MG TABLET PO SCH (10:12)
[2019-03-10] MEDS: Folic Acid 1 MG TABLET PO SCH (10:12)
[2019-03-10] MEDS: Lactobacillus 1 EACH CAP.SPRINK PO SCH (10:12)
[2019-03-10] MEDS: Multivit/Ca/Min/Fe/FA 1 TAB TABLET PO SCH (10:12)
[2019-03-10] MEDS: Pregabalin 75 MG CAPSULE PO SCH ×2 (10:12→20:19)
[2019-03-10] MEDS: [UNRECOGNIZED DRUG - MIXTURE] PO SCH ×2 (10:13→20:34)
--- NOTE | 2019-03-10 10:27 | Orthopedic Consult Note ---
Date of Encounter: 03/10/19 Time of Encounter: 10:22 Assessment and Plan (1) Wound infection Current Visit: Yes Status: Acute The diagnosis and treatment options were discussed with the patient. Bedside I&D was performed necrotic tissue was removed surrounding the open wounds and hematoma was manually decompressed. Wound was then irrigated with normal saline. Wet-to-dry dressing was placed. We did discuss that is very difficult to get this area of the open wound to heal. Would recommend wound care consult. Continue antibiotics per hospitalist team. If hematoma or pain worsens may need formal I&D although we did discuss the difficulty of wound healing following this. History of Present Illness HPI: Ms. Serrano is a 64 year old female with history of RA on immunosuppressive therapy and right knee prosthesis and recent fall onto her right knee. She developed a hematoma after the fall onto the right knee as well as a right wrist fracture. This was about a week ago. The right wrist was fixed by Dr. Jean who also aspirated hematoma the right knee. She has been having increased pain and also developing drainage and the knee was 4 days. She was seen by her PCP on March 06 and was placed on clindamycin without improvement. Subjective fevers and chills. Was admitted for IV atbx with improvement in her pain. Past Med Surg Social Fam HX - Past Medical History Medical history: arthritis, fibromyalgia, GERD, RA, renal disease, TIA Additional medical history: insufficient pancreatic enzyme. Stage 3 Renal disease Psychiatric history: anxiety, depression - Past Surgical History Surgical History: , cholecystectomy, hysterectomy, knee replacement, other Additional surgical history: aortic repair 2015. bowel resection. gastric bypass - Social History Smoking Status: Never smoker Smokeless Tobacco Status: No Alcohol use: rarely Drug use: none - Family History Mother Family Member Ethnicity: Non- Age at : 81 Cause of : CA Hx Family Cardiac Disorders: Yes (Angina, HD) Hx Family Endocrine Disorder: Yes (DM) Sister Family Member Ethnicity: Non- Living Status: Hx Family Cardiac Disorders: Yes (HD) Hx Family Endocrine Disorder: Yes (DM) Father Family Member Ethnicity: Non- Living Status: Age at : 59 Cause of : CHF Hx Family Cardiac Disorders: Yes (HD, CA) Hx Family Endocrine Disorder: Yes (DM) Medications and Allergies Bupropion HCl [Wellbutrin Xl] 300 mg PO DAILY 12/15/16 [History] Duloxetine HCl [Cymbalta] 60 mg PO BID 12/15/16 [History] Folic Acid 1 mg PO DAILY 12/15/16 [History] Glucosamn/[place]n/C/Mn/[place] [Cvs Glucosamine Chondroitin Tb] 1 tab PO BID 12/15/16 [History] Hydroxychloroquine [Plaquenuil] 400 mg PO DAILY 12/15/16 [History] L. Acidophilus/Pectin, [place] [Acidophilus Probiotic Capsule] 1 cap PO DAILY 12/15/16 [History] Lipase/Protease/Amylase [Cyn Rodriguez 24,000 Units Capsule] 1 cap PO BID MDD with snacks 12/15/16 [History] Lipase/Protease/Amylase [Cyn Rodriguez 36,000 Units Capsule] 1 cap PO TIDWM 12/15/16 [History] Multivitamin [Multi-Day Vitamins] 1 tab PO DAILY 12/15/16 [History] Nystatin Cream [Mycostatin Cream] 1 appl TP BID PRN 12/15/16 [History] Pantoprazole Sodium [Protonix] 40 mg PO DAILY 12/15/16 [History] Pregabalin [Lyrica] 150 mg PO BID 12/15/16 [History] Promethazine HCl 12.5 mg PO Q6H PRN 12/15/16 [History] Lidocaine Patch [Lidoderm 5% patch] 1 each TP DAILY PRN #5 adh..patch 02/01/17 [Rx] Methocarbamol [Robaxin-750] 750 mg PO HS 02/26/18 [History] Tocilizumab [Actemra] 162 mg SQ QWEEK 02/26/18 [History] traZODone [TraZODone] 50 - 100 mg PO HS 02/26/18 [History] Meclizine [Antivert] 25 mg PO TID #15 tablet 10/13/18 [Rx] BuPROPion SR (12 HR) [Wellbutrin SR] 150 mg PO DAILY 02/18/19 [History] Oxycodone HCl/Acetaminophen [Percocet 5-325 mg Tablet] 1 each PO Q6H PRN 2 Days #8 tablet 02/28/19 [Rx] Allergy/AdvReac Type Severity Reaction Status Date / Time Erythromycin Base Allergy Rash Verified 02/28/19 19:20 Fish Containing Products Allergy Hives Verified 02/28/19 19:20 fish derived Allergy Hives Verified 02/28/19 19:20 fish oil Allergy Hives Verified 02/28/19 19:20 hydromorphone [From Dilaudid] Allergy Rash Verified 02/28/19 19:20 morphine Allergy Rash Verified 02/28/19 19:20 All Systems Reviewed: The remainder of the systems were reviewed and are negative except as noted in the HPI Physical Exam - Constitutional Vitals: Temp Pulse Resp BP Pulse Ox 98.6 F 80 16 179/79 94 03/10/19 06:53 03/10/19 06:53 03/10/19 06:53 03/10/19 06:53 03/10/19 06:53 Exam: Consult Exam: Constitutional -Vitals reviewed -The patient is well developed and well nourished. -Mood is pleasant. -The patient is well groomed. Psychiatric -The patient is fully alert and oriented x 3. Respiratory: -Respiratory effort normal Abdomen: -Soft abdomen -Non tender -Non distended: Left upper extremity: -No deformities. The overlying skin is intact. No obvious signs of acute trauma. -No tenderness to palpation throughout. -No significant pain with passive motion of the shoulder, elbow, wrist, and fingers within the limits of the bed. -Able to make an "OK" sign, cross the index and long fingers, and extend the thumb. -Sensation grossly intact to light touch throughout the median, radial, and ulnar distributions. -Radial pulse is present; Fingers have good capillary refill. Right upper extremity: -In splint due to recent fracture -Sensation grossly intact to light touch throughout the median, radial, and ulnar distributions. -Fingers have good capillary refill. Left lower extremity: -No deformities. The overlying skin is intact. No obvious signs of acute trauma. -No tenderness to palpation throughout. -No pain with passive motion of the hip, knee, ankle, and toes within the limits of the bed. -No pain with axial loading of the thigh. -Able to dorsiflex and plantarflex the ankle and toes. -Sensation is grossly intact to light touch throughout the sural, saphenous, superficial peroneal, and deep peroneal distributions. -Toes have good capillary refill. Right lower extremity: -Blistering over the anterior medial knee. There is an open wound adjacent to this blistering with necrotic skin overlying. This was removed revealing an open wound with visible hematoma present. Tenderness palpation surrounding this area. There is diffuse ecchymosis without significant erythema present. -No pain with passive motion of the hip, knee, ankle, and toes within the limits of the bed. -No pain with axial loading of the thigh. -Able to dorsiflex and plantarflex the ankle and toes. -Sensation is grossly intact to light touch throughout the sural, saphenous, superficial peroneal, and deep peroneal distributions. -Toes have good capillary refill. Results - Labs Result Diagrams: 03/10/19 02:01 03/10/19 02:01 Labs: Abnormal lab results WBC 3.3 K/mcL (4.3-11.1) L 03/10/19 02:01 RBC 2.92 M/mcL (3.82-4.97) L 03/10/19 02:01 Hgb 10.0 g/dL (11.5-15.4) L 03/10/19 02:01 Hct 29.8 % (35.3-44.9) L 03/10/19 02:01 MCV 102.1 fL (83.0-100.0) H 03/10/19 02:01 MCH 34.2 pg (28.0-33.3) H 03/10/19 02:01 Chloride 112 mEq/L (98-107) H 03/10/19 02:01 Carbon Dioxide 22 mEq/L (23-29) L 03/10/19 02:01 Calcium 8.0 mg/dL (8.6-10.3) L 03/10/19 02:01 H & H 03/09/19 03/10/19 Range/Units 14:29 02:01 Hgb 10.9 L 10.0 L (11.5-15.4) g/dL Hct 32.6 L 29.8 L (35.3-44.9) % All other labs normal. - Diagnostic results Knee x-ray: report reviewed, image reviewed (Soft tissue swelling anteriorinferior. TKA in place) Consult Discharge Plan - Plan Referrals: Jake Conde DO [Primary Care Provider] -
--- NOTE | 2019-03-10 10:55 | Internal Med Progress Note ---
Hospitalist Progress Note - Encounter Date of Encounter: 03/10/19 Time of Encounter: 10:51 - Subjective Interval History: Ms. Serrano is a 64 year old female with history of RA on immunosuppressive therapy and right knee prosthesis and recent fall onto her right knee. She developed a hematoma after the fall onto the right knee as well as a right wrist fracture about a week ago. The right wrist was fixed by Dr. Jean who also aspirated hematoma the right knee. Ever since She has been having increased pain and also developing drainage and the knee in the last 4 days. She was seen by her PCP on March 06 and was placed on clindamycin without improvement. Patient seen and examined in room. She reported right knee pain and swelling have improved but reported constant drainage from the right knee wound. She also reported subjective fever and chills overnight. - Exam Vitals: Temp Pulse Resp BP Pulse Ox 98.6 F 80 16 179/79 94 03/10/19 06:53 03/10/19 06:53 03/10/19 06:53 03/10/19 06:53 03/10/19 06:53 Exam: General: Ill-appearing and in no acute distress HEENT: No erythema of posterior pharynx. No exudates. Lymphatics: No mandibular or cervical lymphadenopathy Cardiovascular: RRR. No murmurs. No chest wall tenderness. Lungs: Clear to auscelltation bilaterally. Regular chest rise. Abdomen: Non-tender. No rebound or gaurding. Nl bowel sounds. Extremities: No edema. 2+ pulses radial and pedal pulses Skin: No rahses, abrasions, or contusions. Nl cap refill. MSK: R knee with significant soft-tissue swelling and erythema surrounding joint. Clear-pink drainage. ROM limited by [pain. Psych: Nl attention. 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 5/5 strength. Sensation to light touch and pinprick intact. - Assessment and Plan (1) Wound infection Current Visit: Yes Status: Acute Assessment and Plan: 03/09 with history of RA on immunosuppresive therapy and right knee prosthesis and recent fall onto her right knee causing hematoma status post drainage presents with concern for infection and right knee. -No systemic signs of infection and did not meet sepsis criteria on admission, however, blood cultures obtained and will follow up -Ortho aware and will see patient tomorrow. We will defer further imaging to ortho PLAN: - Vancomycin and cefepime - Follow cultures - Pain control - Orthopedist see patient tomorrow - [email or web address]@[place] for possible procedure. 03/10 Wound culture sent and results pending, blood cx pending. Bedside debridement performed by ortho this morning. Wound care consult, anticipated prolonged wound heal and wound care per Ortho. Continue current IV abx, tailor according to culture results. (2) Wrist fracture, right Current Visit: No Status: Chronic Assessment and Plan: Currently in a splint and recovering appropriately. - Pain control (3) Immunosuppressed status Current Visit: Yes Status: Acute (4) Immunosuppression due to drug therapy Current Visit: No Status: Chronic Assessment and Plan: Per above (5) Rheumatoid arthritis Current Visit: No Status: Chronic Assessment and Plan: History of rheumatoid arthritis on immunosuppressive therapy. - Hold biologic in setting of acute infection - Home Plaquenil DVT Prophylaxis: Lovenox sq. - Time Spent with Patient Total time spent is greater than 50% in coordination of care (as documented) at patient's floor/unit and/or counseling patient: Greater than 35 minutes Plan of Care Discussed with: patient Internal Medicine: Result - Labs CBC & Chem 7: 03/10/19 02:01 03/10/19 02:01 Labs: Short CBC 03/09/19 03/10/19 Range/Units 14:29 02:01 WBC 4.6 3.3 L (4.3-11.1) K/mcL Hgb 10.9 L 10.0 L (11.5-15.4) g/dL Hct 32.6 L 29.8 L (35.3-44.9) % Plt Count 179 178 (140-400) K/mcL Neutrophils # 3.3 1.8 (1.6-8.9) K/mcL BMP 03/09/19 03/10/19 14:29 02:01 Sodium 139 143 Potassium 3.8 3.6 Chloride 109 H 112 H Carbon Dioxide 20 L 22 L BUN 14 16 Creatinine 0.75 0.87 Glucose 103 100 Calcium 8.7 8.0 L - Impressions Impressions Knee X-Ray 03/09/19 14:18 IMPRESSION: Infrapatellar soft tissue masslike swelling suggests possibility of a hematoma or abscess. D/ / 03/09/2019 15:18:49 Collins Zarate MD / Niki Oliveira Interpreting Provider: Collins Zarate MD Consult Discharge Plan - Plan Referrals: Jake Conde DO [Primary Care Provider] - ___ (2) Wrist fracture, right Qualifiers: Encounter type: subsequent encounter Fracture type: closed Fracture healing: with routine healing Qualified Code(s): S62.101D - Fracture of unspecified carpal bone, right wrist, subsequent encounter for fracture with routine healing (5) Rheumatoid arthritis Qualifiers: Rheumatoid arthritis location: wrist Rheumatoid factor presence: unspecified presence Laterality: unspecified laterality Qualified Code(s): M06.9 - Rheumatoid arthritis, unspecified
[2019-03-10] MEDS: Acetaminophen 325 MG TABLET PO PRN (11:38)
[2019-03-10] MEDS ORDERED: Morphine Sulfate 2 MG/ML SYRINGE IVP PRN (12:20)
[2019-03-10] MEDS: *HR* FentaNYL (PF) 100 MCG/2 ML VIAL IVP PRN ×2 (14:18→20:19)
[2019-03-10] MEDS: Cefepime HCl 2,000 MG in 0.9 % Sodium Chloride Mini Bag 100 ML IVPB SCH (17:27)
[2019-03-10] MEDS: Methocarbamol 750 MG TABLET PO SCH (20:20)
[2019-03-10] MEDS: traZODone 50 MG TABLET PO SCH (20:20)
[2019-03-11] MEDS: Cefepime HCl 2,000 MG in 0.9 % Sodium Chloride Mini Bag 100 ML IVPB SCH ×4 (00:20→22:31)
[2019-03-11] MEDS: *HR* OxyCODONE Immed Rel 5 MG TABLET PO PRN ×3 (00:22→22:30)
[2019-03-11 03:14] LABS: Basophils % 0.8 %; Eosinophils # 0.2 K/mcL (0.0-0.6); Eosinophils % 4.7 %; Hemoglobin 10.1 g/dL (11.5-15.4); Lymphocytes % 25.1 %; Mean Corpuscular HGB Conc 33.7 g/dL (31.6-35.5); Mean Corpuscular Hemoglobin 34.2 pg (28.0-33.3); Mean Corpuscular Volume 101.7 fL (83.0-100.0); Mean Platelet Volume 10.6 fL (9.4-12.4); Monocytes # 0.7 K/mcL (0.0-1.3); Monocytes % 18.5 %; Neutrophils # 1.9 K/mcL (1.6-8.9); Platelet Count 167 K/mcL (140-400); Red Blood Count 2.95 M/mcL (3.82-4.97); Red Cell Distribution Width 14.1 % (11.5-14.5); Segmented Neutrophils % 49.9 %; White Blood Count 3.8 K/mcL (4.3-11.1)
[2019-03-11 03:34] LABS: BUN/Creatinine Ratio 21 (6-26); Blood Urea Nitrogen 19 mg/dL (8-23); Calcium 7.9 mg/dL (8.6-10.3); Carbon Dioxide 21 mEq/L (23-29); Chloride 114 mEq/L (98-107); Glucose 83 mg/dL (70-105); Osmolality,Calculated 295 (280-300); Potassium 3.6 mEq/L (3.5-5.1); Sodium 142 mEq/L (136-145); eGFR For African Americans > 60 (> 60); eGFR For Non-African Americans > 60 (> 60)
[2019-03-11 03:54] LABS: Platelet Estimate Normal (Normal)
[2019-03-11] MEDS: *HR* Enoxaparin 40 MG/0.4 ML SYRINGE SQ SCH (04:54)
[2019-03-11] MEDS: Acetaminophen 325 MG TABLET PO PRN ×2 (05:50→16:38)
[2019-03-11] MEDS: BuPROPion XL (24 HR) 150 MG TABLET PO SCH (09:30)
[2019-03-11] MEDS: Lactobacillus 1 EACH CAP.SPRINK PO SCH (09:30)
[2019-03-11] MEDS: Multivit/Ca/Min/Fe/FA 1 TAB TABLET PO SCH (09:30)
[2019-03-11] MEDS: Folic Acid 1 MG TABLET PO SCH (09:31)
[2019-03-11] MEDS: Pregabalin 75 MG CAPSULE PO SCH ×2 (09:31→21:00)
[2019-03-11] MEDS: [UNRECOGNIZED DRUG - MIXTURE] PO SCH ×2 (09:32→21:00)
--- NOTE | 2019-03-11 13:12 | Internal Med Progress Note ---
Hospitalist Progress Note - Encounter Date of Encounter: 03/11/19 Time of Encounter: 13:10 - Subjective Interval History: Ms. Serrano is a 64 year old female with history of RA on immunosuppressive therapy and right knee prosthesis and recent fall onto her right knee. She developed a hematoma after the fall onto the right knee as well as a right wrist fracture about a week ago. The right wrist was fixed by Dr. Jean who also aspirated hematoma the right knee. Ever since She has been having increased pain and also developing drainage and the knee in the last 4 days. She was seen by her PCP on March 06 and was placed on clindamycin without improvement. Patient seen and examined in room. She reported right knee pain and swelling have improved but reported constant drainage from the right knee wound. Denies fever, chills, or night sweats. Because pt failed outpt abx for right knee infection, she is having severe pain and swelling of right knee, she requires prolonged IV abx and hospital stay. We will change to inpatient status. - Exam Vitals: Temp Pulse Resp BP Pulse Ox 98.9 F 65 16 158/78 96 03/11/19 11:56 03/11/19 11:56 03/11/19 11:56 03/11/19 11:56 03/11/19 11:56 Exam: General: Ill-appearing and in no acute distress HEENT: No erythema of posterior pharynx. No exudates. Lymphatics: No mandibular or cervical lymphadenopathy Cardiovascular: RRR. No murmurs. No chest wall tenderness. Lungs: Clear to auscelltation bilaterally. Regular chest rise. Abdomen: Non-tender. No rebound or gaurding. Nl bowel sounds. Extremities: No edema. 2+ pulses radial and pedal pulses Skin: No rahses, abrasions, or contusions. Nl cap refill. MSK: R knee with significant soft-tissue swelling and erythema surrounding joint. Clear-pink drainage. ROM limited by [pain. Psych: Nl attention. A&Ox3 Neuro: gerentological physiotherapist II-XII intact. 5/5 strength. Sensation to light touch and pinprick intact. - Assessment and Plan (1) Wound infection Current Visit: Yes Status: Acute Assessment and Plan: 03/09 with history of RA on immunosuppresive therapy and right knee prosthesis and recent fall onto her right knee causing hematoma status post drainage presents with concern for infection and right knee. -No systemic signs of infection and did not meet sepsis criteria on admission, however, blood cultures obtained and will follow up -Ortho aware and will see patient tomorrow. We will defer further imaging to ortho PLAN: - Vancomycin and cefepime - Follow cultures - Pain control - Orthopedist see patient tomorrow - [email or web address] for possible procedure. 03/10 Wound culture sent and results pending, blood cx pending. Bedside debridement performed by ortho this morning. Wound care consult, anticipated prolonged wound heal and wound care per Ortho. Continue current IV abx, tailor according to culture results. 03/11 Pending blood and wound culture. Continue current abx and tailor treatment based on culture results. Wound care following, appreciate help. Pt prefers going home with home health, will arrange. (2) Wrist fracture, right Current Visit: No Status: Chronic Assessment and Plan: Currently in a splint and recovering appropriately. - Pain control (3) Immunosuppressed status Current Visit: Yes Status: Acute (4) Immunosuppression due to drug therapy Current Visit: No Status: Chronic Assessment and Plan: Per above (5) Rheumatoid arthritis Current Visit: No Status: Chronic Assessment and Plan: History of rheumatoid arthritis on immunosuppressive therapy. - Hold biologic in setting of acute infection - Home Plaquenil DVT Prophylaxis: Lovenox sq. - Time Spent with Patient Total time spent is greater than 50% in coordination of care (as documented) at patient's floor/unit and/or counseling patient: Greater than 35 minutes Plan of Care Discussed with: patient Internal Medicine: Result - Labs CBC & Chem 7: 03/11/19 01:52 03/11/19 01:52 Labs: Short CBC 03/11/19 Range/Units 01:52 WBC 3.8 L (4.3-11.1) K/mcL Hgb 10.1 L (11.5-15.4) g/dL Hct 30.0 L (35.3-44.9) % Plt Count 167 (140-400) K/mcL Neutrophils # 1.9 (1.6-8.9) K/mcL BMP 03/11/19 01:52 Sodium 142 Potassium 3.6 Chloride 114 H Carbon Dioxide 21 L BUN 19 Creatinine 0.91 Glucose 83 Calcium 7.9 L Consult Discharge Plan - Plan Referrals: Skocik,Jake J, DO [Primary Care Provider] - (Appointment has been requested.) (2) Wrist fracture, right Qualifiers: Encounter type: subsequent encounter Fracture type: closed Fracture healing: with routine healing Qualified Code(s): S62.101D - Fracture of unspecified carpal bone, right wrist, subsequent encounter for fracture with routine healing (5) Rheumatoid arthritis Qualifiers: Rheumatoid arthritis location: wrist Rheumatoid factor presence: unspecified presence Laterality: unspecified laterality Qualified Code(s): M06.9 - Rheumatoid arthritis, unspecified
[2019-03-11] MEDS: *HR* FentaNYL (PF) 100 MCG/2 ML VIAL IVP PRN (13:25)
--- NOTE | 2019-03-11 15:20 | Orthopedics Progress Note ---
Date of Encounter: 03/11/19 Time of Encounter: : - Assessment and Plan (1) Wound infection Current Visit: Yes Status: Acute Subjective Interval history: No new issues. Has some pain superior to wound but knee feeling better. R knee wound with serosanguineous drainage, with healthy appearing wound bed and no purulent drainage R knee traumatic hematoma with wound breakdown -Continue IV antibiotics per hospitalist -Appreciate wound care recs -Follow up as scheduled with Dr Jean for wrist, and wound care for knee wound -Will s/o Objective Vital signs: Vital Signs Temp Pulse Resp BP Pulse Ox 03/11/19 15:13 98.3 F 90 16 150/88 97 03/11/19 11:56 98.9 F 65 16 158/78 96 03/11/19 08:12 97.9 F 70 16 177/78 97 03/10/19 23:55 97.7 F 67 16 126/72 95 03/10/19 19:04 98.7 F 72 16 139/76 95 03/10/19 15:55 98.7 F 66 16 144/76 99 Intake and Output 03/10/19 03/11/19 03/11/19 23:59 07:59 15:59 Intake Total 100 / 1640 350 / 1050 700 / 1050 Balance 100 / 1640 350 / 1050 700 / 1050 Intake: IV Fluids 100 / 1640 350 / 450 100 / 450 Maxipime 2,000 MG In 0.9 % 100 / 100 100 / 200 100 / 200 Sodium Chloride (Mini-Bag +) 100 ML @ 200 mls/hr IVPB Q8HR [facility] Rx#:[id number] Vancocin 1,000 MG In 0.9 % 250 / 250 Sodium Chloride 250 ML @ 166. 667 mls/hr IVPB Q12H [facility] Rx#: [id number] Oral 600 / 600 Other: Meal Breakfast Percent of Meal Consumed 100% # Voids 1 Weight 104 kg Patient Weight 03/11/19 23:59 Weight 104 kg - Labs CBC & BMP: 03/11/19 01:52 03/11/19 01:52 Labs: Abnormal lab results WBC 3.8 K/mcL (4.3-11.1) L 03/11/19 01:52 RBC 2.95 M/mcL (3.82-4.97) L 03/11/19 01:52 Hgb 10.1 g/dL (11.5-15.4) L 03/11/19 01:52 Hct 30.0 % (35.3-44.9) L 03/11/19 01:52 MCV 101.7 fL (83.0-100.0) H 03/11/19 01:52 MCH 34.2 pg (28.0-33.3) H 03/11/19 01:52 Chloride 114 mEq/L (98-107) H 03/11/19 01:52 Carbon Dioxide 21 mEq/L (23-29) L 03/11/19 01:52 Calcium 7.9 mg/dL (8.6-10.3) L 03/11/19 01:52 Vancomycin Trough 17 mcg/mL (5-10) H 03/11/19 01:52 Consult Discharge Plan - Plan Referrals: Jake Conde DO [Primary Care Provider] - (Appointment has been requested.)
[2019-03-11] MEDS: Methocarbamol 750 MG TABLET PO SCH (20:59)
[2019-03-11] MEDS: traZODone 50 MG TABLET PO SCH (21:00)
[2019-03-12 02:20] LABS: Basophils % 1.2 %; Eosinophils # 0.2 K/mcL (0.0-0.6); Eosinophils % 6.1 %; Hematocrit 29.5 % (35.3-44.9); Hemoglobin 9.8 g/dL (11.5-15.4); Immature Granulocytes % 1.2 % (0-4); Lymphocytes % 29.7 %; Mean Corpuscular HGB Conc 33.2 g/dL (31.6-35.5); Mean Corpuscular Hemoglobin 33.7 pg (28.0-33.3); Mean Corpuscular Volume 101.4 fL (83.0-100.0); Mean Platelet Volume 10.4 fL (9.4-12.4); Monocytes # 0.8 K/mcL (0.0-1.3); Monocytes % 23.9 %; Neutrophils # 1.3 K/mcL (1.6-8.9); Platelet Count 176 K/mcL (140-400); Red Blood Count 2.91 M/mcL (3.82-4.97); Red Cell Distribution Width 14.5 % (11.5-14.5); Segmented Neutrophils % 37.9 %; White Blood Count 3.3 K/mcL (4.3-11.1)
[2019-03-12 02:38] LABS: BUN/Creatinine Ratio 20 (6-26); Blood Urea Nitrogen 21 mg/dL (8-23); Carbon Dioxide 21 mEq/L (23-29); Chloride 113 mEq/L (98-107); Glucose 95 mg/dL (70-105); Osmolality,Calculated 299 (280-300); Potassium 3.8 mEq/L (3.5-5.1); Sodium 143 mEq/L (136-145); eGFR For African Americans > 60 (> 60); eGFR For Non-African Americans 52 (> 60)
[2019-03-12 03:39] LABS: Platelet Estimate Slight Decrease (Normal)
[2019-03-12] MEDS: *HR* OxyCODONE Immed Rel 5 MG TABLET PO PRN ×3 (04:23→23:59)
[2019-03-12] MEDS: *HR* Enoxaparin 40 MG/0.4 ML SYRINGE SQ SCH (04:23)
[2019-03-12] MEDS: Pregabalin 75 MG CAPSULE PO SCH ×2 (08:54→21:00)
[2019-03-12] MEDS: Cefepime HCl 2,000 MG in 0.9 % Sodium Chloride Mini Bag 100 ML IVPB SCH ×2 (08:54→17:14)
[2019-03-12] MEDS: BuPROPion XL (24 HR) 150 MG TABLET PO SCH (08:55)
[2019-03-12] MEDS: Lactobacillus 1 EACH CAP.SPRINK PO SCH (08:55)
[2019-03-12] MEDS: Acetaminophen 325 MG TABLET PO PRN ×2 (08:56→21:01)
[2019-03-12] MEDS: [UNRECOGNIZED DRUG - MIXTURE] PO SCH ×2 (08:56→21:04)
[2019-03-12] MEDS: Folic Acid 1 MG TABLET PO SCH (08:56)
[2019-03-12] MEDS: Multivit/Ca/Min/Fe/FA 1 TAB TABLET PO SCH (08:56)
--- NOTE | 2019-03-12 11:11 | Internal Med Progress Note ---
Hospitalist Progress Note - Encounter Date of Encounter: 03/12/19 Time of Encounter: 11:08 - Subjective Interval History: Ms. Serrano is a 64 year old female with history of RA on immunosuppressive therapy and right knee prosthesis and recent fall onto her right knee. She developed a hematoma after the fall onto the right knee as well as a right wrist fracture about a week ago. The right wrist was fixed by Dr. Jean who also aspirated hematoma the right knee. Ever since She has been having increased pain and also developing drainage and the knee in the last 4 days. She was seen by her PCP on March 06 and was placed on clindamycin without improvement. Patient seen and examined in room. She reported right knee pain and swelling have improved but reported constant drainage from the right knee wound. Denies fever, chills, or night sweats. - Exam Vitals: Temp Pulse Resp BP Pulse Ox 97.5 F L 70 16 162/73 95 03/12/19 07:51 03/12/19 07:51 03/12/19 07:51 03/12/19 07:51 03/12/19 07:51 Exam: General: Ill-appearing and in no acute distress HEENT: No erythema of posterior pharynx. No exudates. Lymphatics: No mandibular or cervical lymphadenopathy Cardiovascular: RRR. No murmurs. No chest wall tenderness. Lungs: Clear to auscelltation bilaterally. Regular chest rise. Abdomen: Non-tender. No rebound or gaurding. Nl bowel sounds. Extremities: No edema. 2+ pulses radial and pedal pulses Skin: No rahses, abrasions, or contusions. Nl cap refill. MSK: R knee with significant soft-tissue swelling and erythema surrounding joint. Clear-pink drainage. ROM limited by [pain. Psych: Nl attention. A&Ox3 Neuro: turkey roll maker II-XII intact. 5/5 strength. Sensation to light touch and pinprick intact. - Assessment and Plan (1) Wound infection Current Visit: Yes Status: Acute Assessment and Plan: 03/09 with history of RA on immunosuppresive therapy and right knee prosthesis and recent fall onto her right knee causing hematoma status post drainage presents with concern for infection and right knee. -No systemic signs of infection and did not meet sepsis criteria on admission, however, blood cultures obtained and will follow up -Ortho aware and will see patient tomorrow. We will defer further imaging to ortho PLAN: - Vancomycin and cefepime - Follow cultures - Pain control - Orthopedist see patient tomorrow - NPO@[place] for possible procedure. 03/10 Wound culture sent and results pending, blood cx pending. Bedside debridement performed by ortho this morning. Wound care consult, anticipated prolonged wound heal and wound care per Ortho. Continue current IV abx, tailor according to culture results. 03/11 Pending blood and wound culture. Continue current abx and tailor treatment based on culture results. Wound care following, appreciate help. Pt prefers going home with home health, will arrange. 03/12 Doing better. Pending blood and wound culture. Wound care following. Plan to dc once culture results came back and will tailor IV abx. ID consult for duration of treatment. (2) Wrist fracture, right Current Visit: No Status: Chronic Assessment and Plan: Currently in a splint and recovering appropriately. - Pain control. - Follow up with orthopedics as outpatient. (3) Immunosuppressed status Current Visit: Yes Status: Acute (4) Immunosuppression due to drug therapy Current Visit: No Status: Chronic Assessment and Plan: Per above (5) Rheumatoid arthritis Current Visit: No Status: Chronic Assessment and Plan: History of rheumatoid arthritis on immunosuppressive therapy. - Hold biologic in setting of acute infection - Home Plaquenil DVT Prophylaxis: Lovenox sq. - Time Spent with Patient Total time spent is greater than 50% in coordination of care (as documented) at patient's floor/unit and/or counseling patient: Greater than 35 minutes Plan of Care Discussed with: patient Internal Medicine: Result - Labs CBC & Chem 7: 03/12/19 01:34 03/12/19 01:34 Labs: Short CBC 03/12/19 Range/Units 01:34 WBC 3.3 L (4.3-11.1) K/mcL Hgb 9.8 L (11.5-15.4) g/dL Hct 29.5 L (35.3-44.9) % Plt Count 176 (140-400) K/mcL Neutrophils # 1.3 L (1.6-8.9) K/mcL BMP 03/12/19 01:34 Sodium 143 Potassium 3.8 Chloride 113 H Carbon Dioxide 21 L BUN 21 Creatinine 1.07 Glucose 95 Calcium 8.0 L Consult Discharge Plan - Plan Referrals: Jake Conde DO [Primary Care Provider] - (Appointment has been requested.) (2) Wrist fracture, right Qualifiers: Encounter type: subsequent encounter Fracture type: closed Fracture healing: with routine healing Qualified Code(s): S62.101D - Fracture of unspecified carpal bone, right wrist, subsequent encounter for fracture with routine healing (5) Rheumatoid arthritis Qualifiers: Rheumatoid arthritis location: wrist Rheumatoid factor presence: unspecified presence Laterality: unspecified laterality Qualified Code(s): M06.9 - Rheumatoid arthritis, unspecified
--- NOTE | 2019-03-12 13:34 | Infectious Disease Consult ---
Infectious Disease-Consult - Encounter Date/Time Date of Encounter: 03/12/19 Time of Encounter: 13:17 - Data of Consult Patient: new to practice Reason for consult: Knee infection Consult date: 03/12/19 Requesting Physician: Zay Bruce Primary Care Provider: Roddy Conde DO - HPI HPI: Patient is a 64-year-old woman who presents to [facility] on March 11 for right knee pain and swelling. We are consulted on 03/12/2019 for concern for infected knee. Patient is a 64-year-old woman who has a history of arthritis, fibromyalgia, GERD, rheumatoid arthritis and kidney disease stage III and history of TIA in the past apparently had a fall on 02/28/2019. Patient fell on the portion outside. No loss of consciousness. Patient was found to have a comminuted impacted fracture of the distal radius and right knee hematoma and scrape it. On 03/07/2019 patient underwent a right wrist open reduction and fixation of distal radius and right knee aspiration of hematoma. Intra-Op cultures from the right knee revealed no organism. Patient continues to have more pain and swelling in the knee and decided to come back to the hospital for evaluation. At home patient denied any fevers chills or rigors. She denies any headache no chest pain or shortness of breath no nausea no vomiting no diarrhea no urinary symptoms. Patient was admitted for further evaluation. Since admission, patient has been afebrile. No tachycardia or tachypnea. Presenting labs revealed initially a W24.6 but now she is leukopenic with a WBC of 3.3 with 88% neutrophils, 28% lymphocytes and 23% monocytes. Rest of the chemistry was unimpressive. X-ray of the knee revealed infrapatellar soft tissue masslike swelling suggesting possibility of hematoma or abscess. Patient was evaluated by orthopedics. Apparently I&D was performed at bedside and necrotic tissue was removed surrounding the open wounds and hematoma was manually decompressed. Patient was started on empiric vancomycin and cefepime were asked to evaluate the patient and make further recommendations. Currently patient laying in bed. Appears comfortable. No acute distress. Under control. Denies any headaches no chest pain or shortness of breath no cough. Patient has not had a bowel movement in 48 hours but she tells me that normal for her. Patient denies any urinary symptoms. - ROS Review of Systems: 10 point review of systems done, pertinent positives and negatives mentioned in the history of present illness - Results CBC & Chem 7: 03/12/19 01:34 03/12/19 01:34 - Exam Vitals: Temp Pulse Resp BP Pulse Ox 98.4 F 76 16 131/78 95 03/12/19 11:46 03/12/19 11:46 03/12/19 11:46 03/12/19 11:46 03/12/19 11:46 Exam: GENERAL: Laying in bed, appears comfortable. HEAD: Normocephalic atraumatic EYES: PERRLA, EOMI, no conjunctival hemorrhage, sclera anicteric ENT: Mucous membranes moist, no oral thrush NECK: Supple. No meningeal signs. No masses LUNGS: Chest expanding symmetrically. Lungs sounds audible both lung cosme. No wheezing, no rhonchi CV: RRR, S1S2, ABDOMEN: Soft, nontender, nondistended. Bowel sounds audible EXTREMITY: Adequate perfusion. RUE in a soft cast. R knee with scar from previous TKA and surgical lesion about 2.5x1.5 cm in dimensions. stage IV with fat layer exposed. no pus currently and no surrounding erythema SKIN: No rash. bilateral lower extremity bruises NEURO: Awake alert oriented 3. No obvious focal deficit PSYCH: Calm and appropriate. No agitation. Bupropion HCl [Wellbutrin Xl] 300 mg PO DAILY 12/15/16 [History] Duloxetine HCl [Cymbalta] 60 mg PO BID 12/15/16 [History] Folic Acid 1 mg PO DAILY 12/15/16 [History] Glucosamn/[place]n/C/[place] [[facility] Glucosamine Chondroitin Tb] 1 tab PO BID 12/15/16 [History] Hydroxychloroquine [Plaquenuil] 400 mg PO DAILY 12/15/16 [History] L. Acidophilus/Pectin, Hyden [Acidophilus Probiotic Capsule] 1 cap PO DAILY 12/15/16 [History] Lipase/Protease/Amylase [Cyn Rodriguez 24,000 Units Capsule] 1 cap PO BID MDD with snacks 12/15/16 [History] Lipase/Protease/Amylase [Cyn Rodriguez 36,000 Units Capsule] 1 cap PO TIDWM 12/15/16 [History] Multivitamin [Multi-Day Vitamins] 1 tab PO DAILY 12/15/16 [History] Nystatin Cream [Mycostatin Cream] 1 appl TP BID PRN 12/15/16 [History] Pantoprazole Sodium [Protonix] 40 mg PO DAILY 12/15/16 [History] Pregabalin [Lyrica] 150 mg PO BID 12/15/16 [History] Promethazine HCl 12.5 mg PO Q6H PRN 12/15/16 [History] Lidocaine Patch [Lidoderm 5% patch] 1 each TP DAILY PRN #5 adh..patch 02/01/17 [Rx] Methocarbamol [Robaxin-750] 750 mg PO HS 02/26/18 [History] Tocilizumab [Actemra] 162 mg SQ ALANIZ 02/26/18 [History] traZODone [TraZODone] 50 - 100 mg PO HS 02/26/18 [History] Meclizine [Antivert] 25 mg PO TID #15 tablet 10/13/18 [Rx] BuPROPion SR (12 HR) [Wellbutrin SR] 150 mg PO DAILY 02/18/19 [History] Oxycodone HCl/Acetaminophen [Percocet 5-325 mg Tablet] 1 each PO Q6H PRN 2 Days #8 tablet 02/28/19 [Rx] Clopidogrel [Plavix] 75 mg PO HS 03/10/19 [History] Dicyclomine Hcl [Bentyl] 20 mg PO AD 03/10/19 [History] Furosemide [Lasix] 20 mg PO BID PRN 03/10/19 [History] Lisinopril [Zestril] 5 mg PO DAILY 03/10/19 [History] Ondansetron HCl 4 mg PO Q8H PRN 03/10/19 [History] Allergy/AdvReac Type Severity Reaction Status Date / Time Erythromycin Base Allergy Rash Verified 03/10/19 10:36 Fish Containing Products Allergy Hives Verified 03/10/19 10:36 fish derived Allergy Hives Verified 03/10/19 10:36 fish oil Allergy Hives Verified 03/10/19 10:36 hydromorphone [From Dilaudid] Allergy Rash Verified 03/10/19 10:36 morphine Allergy Rash Verified 03/10/19 10:36 - Assessment and Plan (1) Traumatic hematoma of right knee Current Visit: Yes Status: Acute s/p fall 02/28/19 s/p I&D of hematoma of the right knee 03/[address] Jean; intra op cultures negative s/p bedside I&D by Dr. Kamara 03/09 and excision of necrotic tissue currently on vancomycin and cefepime continue current regimen for now but plan to switch to oral bactrim/keflex on d/c to treat for 3-4 weeks will d/w ortho to see if they are okay with plan monitor labs and for drug toxicity get baseline CRP and ESR Qualifiers: Encounter type: initial encounter Qualified Code(s): S80.01XA - Contusion of right knee, initial encounter SNOMED Code(s): 28796357, 119866718 (2) Wrist fracture, right Current Visit: No Status: Chronic secondary to a fall 02/28 s/p ORIF 03/[address] Villa Qualifiers: Encounter type: subsequent encounter Fracture type: closed Fracture healing: with routine healing Qualified Code(s): S62.101D - Fracture of unspecified carpal bone, right wrist, subsequent encounter for fracture with routine healing SNOMED Code(s): 605643818, 019565053 (3) Immunosuppressed status Current Visit: Yes Status: Acute currently only on plaquenil SNOMED Code(s): 86741946 (4) Rheumatoid arthritis Current Visit: No Status: Chronic Qualifiers: Rheumatoid arthritis location: wrist Rheumatoid factor presence: unspecified presence Laterality: unspecified laterality Qualified Code(s): M06.9 - Rheumatoid arthritis, unspecified SNOMED Code(s): 66936522 (5) Neutropenia Current Visit: No Status: Acute etiology? could be due to plaquenil? Qualifiers: Neutropenia type: unspecified Qualified Code(s): D70.9 - Neutropenia, unspecified SNOMED Code(s): 577935610 (6) Rheumatoid arthritis Current Visit: No Status: Chronic Qualifiers: Rheumatoid arthritis location: hand Rheumatoid factor presence: unspecified presence Laterality: bilateral Qualified Code(s): M06.9 - Rheumatoid arthritis, unspecified SNOMED Code(s): 27246538 (7) H/O total knee replacement Current Visit: Yes Status: Acute Qualifiers: Laterality: bilateral Qualified Code(s): Z96.653 - Presence of artificial knee joint, bilateral SNOMED Code(s): 9386255213040, 4556833185656, [id number] Past Med Surg Social Fam HX - Past Medical History Medical history: arthritis, fibromyalgia, GERD, RA, renal disease, TIA Additional medical history: insufficient pancreatic enzyme. Stage 3 Renal disease Psychiatric history: anxiety, depression - Past Surgical History Surgical History: , cholecystectomy, hysterectomy, knee replacement, other Additional surgical history: aortic repair 2015. bowel resection. gastric bypass - Social History Smoking Status: Never smoker Smokeless Tobacco Status: No Alcohol use: rarely Drug use: none - Family History Mother Family Member Ethnicity: Non- Age at : 81 Cause of : [place] Hx Family Cardiac Disorders: Yes (Angina, HD) Hx Family Endocrine Disorder: Yes (DM) Sister Family Member Ethnicity: Non- Living Status: Hx Family Cardiac Disorders: Yes (HD) Hx Family Endocrine Disorder: Yes (DM) Father Family Member Ethnicity: Non- Living Status: Age at : 59 Cause of : CHF Hx Family Cardiac Disorders: Yes (HD, [place]) Hx Family Endocrine Disorder: Yes (DM) Consult Discharge Plan - Plan Referrals: Jake Conde DO [Primary Care Provider] - (Appointment has been requested.)
[2019-03-12] MEDS: Methocarbamol 750 MG TABLET PO SCH (21:00)
[2019-03-12] MEDS: traZODone 50 MG TABLET PO SCH (21:00)
[2019-03-13] MEDS: *HR* OxyCODONE Immed Rel 5 MG TABLET PO PRN ×3 (05:54→23:10)
[2019-03-13] MEDS: *HR* Enoxaparin 40 MG/0.4 ML SYRINGE SQ SCH (05:54)
[2019-03-13] MEDS: Cefepime HCl 2,000 MG in 0.9 % Sodium Chloride Mini Bag 100 ML IVPB SCH ×3 (07:55→15:47)
[2019-03-13 08:32] LABS: Basophils % 1.2 %; Eosinophils # 0.2 K/mcL (0.0-0.6); Eosinophils % 7.3 %; Hematocrit 29.2 % (35.3-44.9); Hemoglobin 9.9 g/dL (11.5-15.4); Immature Granulocytes % 1.2 % (0-4); Lymphocytes # 0.7 K/mcL (0.6-4.6); Lymphocytes % 21.6 %; Mean Corpuscular HGB Conc 33.9 g/dL (31.6-35.5); Mean Corpuscular Hemoglobin 35.4 pg (28.0-33.3); Mean Corpuscular Volume 104.3 fL (83.0-100.0); Mean Platelet Volume 10.1 fL (9.4-12.4); Monocytes # 0.6 K/mcL (0.0-1.3); Monocytes % 19.2 %; Neutrophils # 1.6 K/mcL (1.6-8.9); Platelet Count 170 K/mcL (140-400); Red Cell Distribution Width 14.6 % (11.5-14.5); Segmented Neutrophils % 49.5 %; White Blood Count 3.3 K/mcL (4.3-11.1)
[2019-03-13 08:46] LABS: BUN/Creatinine Ratio 22 (6-26); Blood Urea Nitrogen 20 mg/dL (8-23); Calcium 8.2 mg/dL (8.6-10.3); Carbon Dioxide 22 mEq/L (23-29); Chloride 113 mEq/L (98-107); Glucose 91 mg/dL (70-105); Osmolality,Calculated 296 (280-300); Potassium 3.7 mEq/L (3.5-5.1); Sodium 142 mEq/L (136-145); eGFR For African Americans > 60 (> 60); eGFR For Non-African Americans > 60 (> 60)
[2019-03-13 09:04] LABS: Anisocytosis 1+ (Not Present); Macrocytosis Present (Not Present); Platelet Estimate Normal (Normal)
[2019-03-13] MEDS: Lactobacillus 1 EACH CAP.SPRINK PO SCH (09:58)
[2019-03-13] MEDS: Folic Acid 1 MG TABLET PO SCH (09:58)
[2019-03-13] MEDS: BuPROPion XL (24 HR) 150 MG TABLET PO SCH (09:59)
[2019-03-13] MEDS: Multivit/Ca/Min/Fe/FA 1 TAB TABLET PO SCH (09:59)
[2019-03-13] MEDS: Pregabalin 75 MG CAPSULE PO SCH ×2 (09:59→20:37)
[2019-03-13] MEDS: [UNRECOGNIZED DRUG - MIXTURE] PO SCH ×2 (10:00→20:40)
--- NOTE | 2019-03-13 10:22 | Internal Med Progress Note ---
Hospitalist Progress Note - Encounter Date of Encounter: 03/13/19 Time of Encounter: 10:21 - Subjective Interval History: Patient was seen and examined at bedside currently she states that her leg feels much better -discuss treatment plan which includes possible IV versus oral antibiotics awaiting IDs recommendations as well as culture results. Patient verbalizes understanding of treatment plan. - Exam Vitals: Temp Pulse Resp BP Pulse Ox 98.0 F 66 19 153/65 97 03/13/19 07:22 03/13/19 07:22 03/13/19 07:22 03/13/19 07:03/13/19 07:22 Exam: General: Ill-appearing and in no acute distress HEENT: No erythema of posterior pharynx. No exudates. Lymphatics: No mandibular or cervical lymphadenopathy Cardiovascular: RRR. No murmurs. No chest wall tenderness. Lungs: Clear to auscelltation bilaterally. Regular chest rise. Abdomen: Non-tender. No rebound or gaurding. Nl bowel sounds. Extremities: No edema. 2+ pulses radial and pedal pulses Skin: No rahses, abrasions, or contusions. Nl cap refill. MSK: R knee with significant soft-tissue swelling and erythema surrounding joint. Clear-pink drainage. ROM limited by [pain. Psych: Nl attention. A&Ox3 Neuro: insulation professional II-XII intact. 5/5 strength. Sensation to light touch and pinprick intact. - Assessment and Plan (1) Wound infection Current Visit: Yes Status: Acute Assessment and Plan: 03/09 with history of RA on immunosuppresive therapy and right knee prosthesis and recent fall onto her right knee causing hematoma status post drainage presents with concern for infection and right knee. -No systemic signs of infection and did not meet sepsis criteria on admission, however, blood cultures obtained and will follow up -Ortho aware and will see patient tomorrow. We will defer further imaging to ortho PLAN: - Vancomycin and cefepime - Follow cultures - Pain control - Orthopedist see patient tomorrow - NPO@[place] for possible procedure. 03/10 Wound culture sent and results pending, blood cx pending. Bedside debridement performed by ortho this morning. Wound care consult, anticipated prolonged wound heal and wound care per Ortho. Continue current IV abx, tailor according to culture results. 03/11 Pending blood and wound culture. Continue current abx and tailor treatment based on culture results. Wound care following, appreciate help. Pt prefers going home with home health, will arrange. 03/12 Doing better. Pending blood and wound culture. Wound care following. Plan to dc once culture results came back and will tailor IV abx. ID consult for duration of treatment. 03/13 Blood and wound cultures are pending at this time Wound care has been consulted and appreciate recommendations Plan to discharge once culture results are confirmed Infectious disease has been consulted concerning antibiotic duration and treatment (2) Wrist fracture, right Current Visit: No Status: Chronic Assessment and Plan: Currently in a splint and recovering appropriately. - Pain control. - Follow up with orthopedics as outpatient. (3) Immunosuppressed status Current Visit: Yes Status: Acute Assessment and Plan: Patient on Plaquenil for rheumatoid arthritis white count 3.3 today no fevers continue with antibiotic treatment (4) Immunosuppression due to drug therapy Current Visit: No Status: Chronic Assessment and Plan: Per above (5) Rheumatoid arthritis Current Visit: No Status: Chronic Assessment and Plan: History of rheumatoid arthritis on immunosuppressive therapy. 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 - Time Spent with Patient Total time spent is greater than 50% in coordination of care (as documented) at patient's floor/unit and/or counseling patient: Internal Medicine: Result - Labs CBC & Chem 7: 03/13/19 08:14 03/13/19 08:14 Labs: Short CBC 03/13/19 Range/Units 08:14 WBC 3.3 L (4.3-11.1) K/mcL Hgb 9.9 L (11.5-15.4) g/dL Hct 29.2 L (35.3-44.9) % Plt Count 170 (140-400) K/mcL Neutrophils # 1.6 (1.6-8.9) K/mcL BMP 03/13/19 08:14 Sodium 142 Potassium 3.7 Chloride 113 H Carbon Dioxide 22 L BUN 20 Creatinine 0.91 Glucose 91 Calcium 8.2 L Consult Discharge Plan - Plan Additional Instructions: Call [facility] [place] when you get home to have Bedside commode delivered #[phone]. Referrals: Jake Conde DO [Primary Care Provider] - (Appointment has been requested.) (2) Wrist fracture, right Qualifiers: Encounter type: subsequent encounter Fracture type: closed Fracture healing: with routine healing Qualified Code(s): S62.101D - Fracture of unspecified carpal bone, right wrist, subsequent encounter for fracture with routine healing (5) Rheumatoid arthritis Qualifiers: Rheumatoid arthritis location: wrist Rheumatoid factor presence: unspecified presence Laterality: unspecified laterality Qualified Code(s): M06.9 - Rheumatoid arthritis, unspecified
--- NOTE | 2019-03-13 17:47 | Infectious Disease Progress No ---
ID Progress Note Date of Encounter: 03/13/19 Time of Encounter: 17:42 - Subjective Subjective: Patient seen and examined. No chest pain. No SOB. NO diarrhea. No urinary symptoms. states the elbow and knee pain are better somewhat VS noted labs reviewed Cultures No growth to date - Objective CBC & Chem 7: 03/13/19 08:14 03/13/19 08:14 - Exam Vitals: Temp Pulse Resp BP Pulse Ox 97.9 F 83 16 109/56 98 03/13/19 16:11 03/13/19 16:11 03/13/19 16:11 03/13/19 16:11 03/13/19 16:11 Exam: GENERAL: Comfortable. Laying in bed NAD HEENT: TWAN, EOMI LUNGS: Good air sounds bilaterally, no wheezing or rhonchi CV: RRR, S1 S2 ABDOMEN: Soft, nontender, + bowel sounds EXT: Right knee with wound okay no drainage no signs of cellulitis; RUE in a soft cast NEURO: A&OX3; no focal deficit - Assessment and Plan (1) Traumatic hematoma of right knee Current Visit: Yes Status: Acute s/p fall 02/28/19 s/p I&D of hematoma of the right knee 03/[address] Jean; intra op cultures negative s/p bedside I&D by Dr. Kamara 03/09 and excision of necrotic tissue currently on vancomycin and cefepime continue current regimen for now but plan to switch to oral bactrim/keflex on d/c to treat for 3-4 weeks will d/w ortho to see if they are okay with plan monitor labs and for drug toxicity get baseline CRP and ESR Qualifiers: Encounter type: initial encounter Qualified Code(s): S80.01XA - Contusion of right knee, initial encounter SNOMED Code(s): 22707349, 183551786 (2) Wrist fracture, right Current Visit: No Status: Chronic secondary to a fall 02/28 s/p ORIF 03/[address] Villa Qualifiers: Encounter type: subsequent encounter Fracture type: closed Fracture healing: with routine healing Qualified Code(s): S62.101D - Fracture of unspecified carpal bone, right wrist, subsequent encounter for fracture with routine healing SNOMED Code(s): 373023628, 642417006 (3) Immunosuppressed status Current Visit: Yes Status: Acute currently only on plaquenil SNOMED Code(s): 07907340 (4) Rheumatoid arthritis Current Visit: No Status: Chronic Qualifiers: Rheumatoid arthritis location: wrist Rheumatoid factor presence: unspecified presence Laterality: unspecified laterality Qualified Code(s): M06.9 - Rheumatoid arthritis, unspecified SNOMED Code(s): 83967013 (5) Neutropenia Current Visit: No Status: Acute etiology? could be due to plaquenil? Qualifiers: Neutropenia type: unspecified Qualified Code(s): D70.9 - Neutropenia, unspecified SNOMED Code(s): 278149918 (6) Rheumatoid arthritis Current Visit: No Status: Chronic Qualifiers: Rheumatoid arthritis location: hand Rheumatoid factor presence: unspecified presence Laterality: bilateral Qualified Code(s): M06.9 - Rheumatoid arthritis, unspecified SNOMED Code(s): 10937618 (7) H/O total knee replacement Current Visit: Yes Status: Acute Qualifiers: Laterality: bilateral Qualified Code(s): Z96.653 - Presence of artificial knee joint, bilateral SNOMED Code(s): 9876650598793, [id number], [id number] Consult Discharge Plan - Plan Additional Instructions: Call [facility] when you get home to have Bedside commode delivered #[phone]. Referrals: Jake Conde DO [Primary Care Provider] - (Appointment has been requested.)
[2019-03-13] MEDS: Methocarbamol 750 MG TABLET PO SCH (20:38)
[2019-03-13] MEDS: Acetaminophen 325 MG TABLET PO PRN (20:38)
[2019-03-13] MEDS: traZODone 50 MG TABLET PO SCH (20:38)
[2019-03-14] MEDS: Cefepime HCl 2,000 MG in 0.9 % Sodium Chloride Mini Bag 100 ML IVPB SCH ×2 (00:23→07:48)
[2019-03-14 02:57] LABS: Hematocrit 28.9 % (35.3-44.9); Hemoglobin 9.4 g/dL (11.5-15.4); Mean Corpuscular HGB Conc 32.5 g/dL (31.6-35.5); Mean Corpuscular Hemoglobin 34.4 pg (28.0-33.3); Mean Corpuscular Volume 105.9 fL (83.0-100.0); Mean Platelet Volume 10.6 fL (9.4-12.4); Platelet Count 169 K/mcL (140-400); Red Blood Count 2.73 M/mcL (3.82-4.97); Red Cell Distribution Width 14.9 % (11.5-14.5); White Blood Count 3.6 K/mcL (4.3-11.1)
[2019-03-14 03:18] LABS: BUN/Creatinine Ratio 25 (6-26); Blood Urea Nitrogen 25 mg/dL (8-23); Calcium 7.9 mg/dL (8.6-10.3); Carbon Dioxide 22 mEq/L (23-29); Chloride 115 mEq/L (98-107); Glucose 102 mg/dL (70-105); Osmolality,Calculated 299 (280-300); Potassium 3.9 mEq/L (3.5-5.1); Sodium 142 mEq/L (136-145); eGFR For African Americans > 60 (> 60); eGFR For Non-African Americans 56 (> 60)
[2019-03-14 03:50] LABS: Basophils # 0.1 K/mcL (0.0-0.2); Eosinophils # 0.3 K/mcL (0.0-0.6); Monocytes # 0.7 K/mcL (0.0-1.3); Neutrophils # 1.5 K/mcL (1.6-8.9); Platelet Estimate Normal (Normal)
[2019-03-14 03:52] LABS: Anisocytosis 1+ (Not Present); Large Platelets Present (Not Present); Macrocytosis Present (Not Present)
[2019-03-14] MEDS: *HR* Enoxaparin 40 MG/0.4 ML SYRINGE SQ SCH (05:06)
[2019-03-14] MEDS: BuPROPion XL (24 HR) 150 MG TABLET PO SCH (07:46)
[2019-03-14] MEDS: Acetaminophen 325 MG TABLET PO PRN (07:47)
[2019-03-14] MEDS: Pregabalin 75 MG CAPSULE PO SCH (07:47)
[2019-03-14] MEDS: Folic Acid 1 MG TABLET PO SCH (07:47)
[2019-03-14] MEDS: Lactobacillus 1 EACH CAP.SPRINK PO SCH (07:47)
[2019-03-14] MEDS: Multivit/Ca/Min/Fe/FA 1 TAB TABLET PO SCH (07:47)
[2019-03-14] MEDS: [UNRECOGNIZED DRUG - MIXTURE] PO SCH (07:48)
--- NOTE | 2019-03-14 11:38 | Discharge Summary ---
Orders not resulted at time of discharge: Pending orders 03/09/19 15:37 Culture,Blood [BC] Stat 03/15/19 03:00 Vancomycin,Trough Timed Date of Encounter: 03/14/19 Time of Encounter: 11:07 - Discharge Diagnosis (1) Wound infection Priority: Primary Status: Acute (2) Wrist fracture, right Priority: Secondary Status: Chronic Qualifiers: Encounter type: subsequent encounter Fracture type: closed Fracture healing: with routine healing Qualified Code(s): S62.101D - Fracture of unspecified carpal bone, right wrist, subsequent encounter for fracture with routine healing (3) Immunosuppressed status Priority: Secondary Status: Acute (4) Immunosuppression due to drug therapy Priority: Secondary Status: Chronic (5) Rheumatoid arthritis Priority: Secondary Status: Chronic Qualifiers: Rheumatoid arthritis location: wrist Rheumatoid factor presence: unspecified presence Laterality: unspecified laterality Qualified Code(s): M06.9 - Rheumatoid arthritis, unspecified Hospital course: Ms. Serrano is a 64 year old female past medical history of rheumatoid arthritis on immunosuppressive therapy and right knee prosthesis-she sustained a recent fall onto her right knee causing hematoma which then began to drain she presented to [facility] ED with concerns for infection of her right knee. Patient also fell onto her right arm on the February. She was seen in emergency department for this and was found to have comminuted impacted fracture of the distal radius (s/p splinting) on March 06 she was seen by orthopedic office and right knee appeared acutely infected. Per patient knee was drained and patient was placed on clindamycin. Knee has been draining since this time initially drainage was a bloody fluid however now appears green no preevent on clindamycin experiencing subjective fevers and chills. On presentation white count was 4.6 x-ray was significant soft tissue swelling she was initiated on vancomycin and Zosyn-she was seen by orthopedics and a bedside I&D was performed no chronic tissue removed surrounding the opening wound and [id number]-[id number]-dry dressings- wound care consult placed-infectious disease consulted to evaluate the patient and prior to discharge discuss case with Dr. Doran recommending transitioning to oral doxycycline and Keflex on DC for 21 days. Patient has been afebrile and vital signs are stable. Patient will follow-up with orthopedics as well as primary care provider. - Time Spent with Patient Total time spent providing and/or coordinating discharge services: - Discharge Medications Prescriptions: New Doxycycline 100 mg PO BID 21 Days #42 capsule cephALEXin [Keflex] 500 mg PO TID 21 Days #63 capsule Continued Nystatin Cream [Mycostatin Cream] 1 appl TP BID PRN PRN Reason: Rash Hydroxychloroquine [Plaquenuil] 400 mg PO DAILY Folic Acid 1 mg PO DAILY Promethazine HCl 12.5 mg PO Q6H PRN PRN Reason: Nausea Pregabalin [Lyrica] 150 mg PO BID Pantoprazole Sodium [Protonix] 40 mg PO DAILY Multivitamin [Multi-Day Vitamins] 1 tab PO DAILY Lipase/Protease/Amylase [Creon Dr 36,000 Units Capsule] 1 cap PO TIDWM Lipase/Protease/Amylase [Creon Dr 24,000 Units Capsule] 1 cap PO BID MDD with snacks L. Acidophilus/Pectin, [place] [Acidophilus Probiotic Capsule] 1 cap PO DAILY Glucosamn/Condroitn/C/Mn/[place] [Cvs Glucosamine Chondroitin Tb] 1 tab PO BID Duloxetine HCl [Cymbalta] 60 mg PO BID Bupropion HCl [Wellbutrin Xl] 300 mg PO DAILY Lidocaine Patch [Lidoderm 5% patch] 1 each TP DAILY PRN #5 adh..patch PRN Reason: Pain Methocarbamol [Robaxin-750] 750 mg PO HS Tocilizumab [Actemra] 162 mg SQ ALANIZ traZODone [TraZODone] 50 - 100 mg PO HS Meclizine [Antivert] 25 mg PO TID #15 tablet BuPROPion SR (12 HR) [Wellbutrin SR] 150 mg PO DAILY Oxycodone HCl/Acetaminophen [Percocet 5-325 mg Tablet] 1 each PO Q6H PRN 2 Days #8 tablet PRN Reason: Severe Pain Dicyclomine Hcl [Bentyl] 20 mg PO AD Furosemide [Lasix] 20 mg PO BID PRN PRN Reason: Edema Lisinopril [Zestril] 5 mg PO DAILY Ondansetron HCl 4 mg PO Q8H PRN PRN Reason: Nausea Clopidogrel [Plavix] 75 mg PO HS Home Medications: Bupropion HCl [Wellbutrin Xl] 300 mg PO DAILY 12/15/16 [History] Duloxetine HCl [Cymbalta] 60 mg PO BID 12/15/16 [History] Folic Acid 1 mg PO DAILY 12/15/16 [History] Glucosamn/[place]n/C/Mn/[place] [Cvs Glucosamine Chondroitin Tb] 1 tab PO BID 12/15/16 [History] Hydroxychloroquine [Plaquenuil] 400 mg PO DAILY 12/15/16 [History] L. Acidophilus/Pectin, [place] [Acidophilus Probiotic Capsule] 1 cap PO DAILY 12/15/16 [History] Lipase/Protease/Amylase [Cyn Rodriguez 24,000 Units Capsule] 1 cap PO BID MDD with snacks 12/15/16 [History] Lipase/Protease/Amylase [Cyn Rodriguez 36,000 Units Capsule] 1 cap PO TIDWM 12/15/16 [History] Multivitamin [Multi-Day Vitamins] 1 tab PO DAILY 12/15/16 [History] Nystatin Cream [Mycostatin Cream] 1 appl TP BID PRN 12/15/16 [History] Pantoprazole Sodium [Protonix] 40 mg PO DAILY 12/15/16 [History] Pregabalin [Lyrica] 150 mg PO BID 12/15/16 [History] Promethazine HCl 12.5 mg PO Q6H PRN 12/15/16 [History] Lidocaine Patch [Lidoderm 5% patch] 1 each TP DAILY PRN #5 adh..patch 02/01/17 [Rx] Methocarbamol [Robaxin-750] 750 mg PO HS 02/26/18 [History] Tocilizumab [Actemra] 162 mg SQ ALANIZ 02/26/18 [History] traZODone [TraZODone] 50 - 100 mg PO HS 02/26/18 [History] Meclizine [Antivert] 25 mg PO TID #15 tablet 10/13/18 [Rx] BuPROPion SR (12 HR) [Wellbutrin SR] 150 mg PO DAILY 02/18/19 [History] Oxycodone HCl/Acetaminophen [Percocet 5-325 mg Tablet] 1 each PO Q6H PRN 2 Days #8 tablet 02/28/19 [Rx] Clopidogrel [Plavix] 75 mg PO HS 03/10/19 [History] Dicyclomine Hcl [Bentyl] 20 mg PO AD 03/10/19 [History] Furosemide [Lasix] 20 mg PO BID PRN 03/10/19 [History] Lisinopril [Zestril] 5 mg PO DAILY 03/10/19 [History] Ondansetron HCl 4 mg PO Q8H PRN 03/10/19 [History] Doxycycline 100 mg PO BID 21 Days #42 capsule 03/14/19 [Rx] cephALEXin [Keflex] 500 mg PO TID 21 Days #63 capsule 03/14/19 [Rx] Allergies/Adverse Reactions: Allergy/AdvReac Type Severity Reaction Status Date / Time Erythromycin Base Allergy Rash Verified 03/10/19 10:36 Fish Containing Products Allergy Hives Verified 03/10/19 10:36 fish derived Allergy Hives Verified 03/10/19 10:36 fish oil Allergy Hives Verified 03/10/19 10:36 hydromorphone [From Dilaudid] Allergy Rash Verified 03/10/19 10:36 morphine Allergy Rash Verified 03/10/19 10:36 Date of admission: 03/11/19 14:21 Primary care physician: Roddy Conde DO Consults: 03/09/19 15:49 Consult to Orthopedic Surgery [CONS] Stat Consulting Provider: Orthoped[facility] Reason for Consult: right knee wound infection Time Notified: 15:30 Call Completed: Yes 03/10/19 10:49 Consult to Wound Care [CONS] Routine Reason for Consult: right knee wound care Call Completed: Yes 03/11/19 07:32 Consult to Physical Therapy [CONS] Routine Comment: Evaluate, develop and implement POC Reason for Consult: dc plan Does patient have active BEDREST order?: No Is patient medically & hemodynamically stable?: Yes Patient assessed for mobility or mobilized this visit?: Yes OT [Consult to Occupational Therapy] [CONS] Routine Comment: Evaluate, develop and implement POC Reason for Consult: dc plan Does patient have active BEDREST order?: No Is patient medically & hemodynamically stable?: Yes Patient assessed for mobility or mobilized this visit?: Yes 03/12/19 11:14 Consult to Infectious Diseases [CONS] Routine Consulting Provider: Infectious [facility] Reason for Consult: knee infection Call Completed: Yes - Constitutional Vitals: Temp Pulse Resp BP Pulse Ox 98.1 F 61 17 151/76 99 03/14/19 07:19 03/14/19 07:19 03/14/19 07:19 03/14/19 07:19 03/14/19 07:19 Exam: General: Ill-appearing and in no acute distress HEENT: No erythema of posterior pharynx. No exudates. Lymphatics: No mandibular or cervical lymphadenopathy Cardiovascular: RRR. No murmurs. No chest wall tenderness. Lungs: Clear to auscelltation bilaterally. Regular chest rise. Abdomen: Non-tender. No rebound or gaurding. Nl bowel sounds. Extremities: No edema. 2+ pulses radial and pedal pulses Skin: No rahses, abrasions, or contusions. Nl cap refill. MSK: R knee with significant soft-tissue swelling and erythema surrounding joint. Clear-pink drainage. ROM limited by [pain. Psych: Nl attention. A&Ox3 Neuro: oil pumper II-XII intact. 5/5 strength. Sensation to light touch and pinprick intact. - Patient Status Disposition: Home Health Service Condition: Fair Functional capacity at discharge: independent ambulation Overall status at discharge: patient is back to baseline - Discharge Instructions Follow Up With: Jennifer Steinberg PAC [Physician Propagation Worker] - 03/20/19 9:30 am Jake Conde DO [Primary Care Provider] - 03/19/19 2:20 pm () Forms: ED Satisfaction Letter, Work/School Release Additional Instructions: Call [facility] when you get home to have Bedside commode delivered #[phone]. - Diet and Activity Activity: increase activity as tolerated Diet: advance to your usual diet
[2019-03-14 12:15] LABS: C-Reactive Protein < 5 mg/L (Less than 10)
[2019-03-14 12:36] VITALS: BP 161/78
--- NOTE | 2019-03-14 13:29 | Physician Discharge Referral ---
Home Health/Hosp Referral Info Transfer to: Home Health Attending Provider: Cleo Palacios Provider in Charge Post Discharge: PCP - Diagnosis (1) Wound infection Priority: Primary Status: Acute (2) Wrist fracture, right Priority: Secondary Status: Chronic (3) Immunosuppressed status Priority: Secondary Status: Acute (4) Immunosuppression due to drug therapy Priority: Secondary Status: Chronic (5) Rheumatoid arthritis Priority: Secondary Status: Chronic - Respiratory Orders Smoking Cessation: Smoking cessation has been advised. For more information, call the [place] Tobacco Quit Line at 1-769-KARE-NOW. - Dressing/Wound Care Site: wound care - R knee daily wound care with calcium alginate with silver Type of Dressing/Treatments w/Frequency: daily wound care with calcium alginate with silver - Diet/Nutrition Diet/Nutrition Orders: Regular - Activity Activity Orders: Up ad augusto - Services Needed Following services are medically necessary services: Nursing, Physical Therapy, Occupational Therapy - Transfer Medications Prescriptions: Doxycycline 100 mg PO BID 21 Days #42 capsule cephALEXin [Keflex] 500 mg PO TID 21 Days #63 capsule Home Medications: Bupropion HCl [Wellbutrin Xl] 300 mg PO DAILY 12/15/16 [History] Duloxetine HCl [Cymbalta] 60 mg PO BID 12/15/16 [History] Folic Acid 1 mg PO DAILY 12/15/16 [History] Glucosamn/Condroitn/C/Mn/[place] [Cvs Glucosamine Chondroitin Tb] 1 tab PO BID 12/15/16 [History] Hydroxychloroquine [Plaquenuil] 400 mg PO DAILY 12/15/16 [History] L. Acidophilus/Pectin, [place] [Acidophilus Probiotic Capsule] 1 cap PO DAILY 12/15/16 [History] Lipase/Protease/Amylase [Cyn Rodriguez 24,000 Units Capsule] 1 cap PO BID MDD with snacks 12/15/16 [History] Lipase/Protease/Amylase [Cyn Rodriguez 36,000 Units Capsule] 1 cap PO TIDWM 12/15/16 [History] Multivitamin [Multi-Day Vitamins] 1 tab PO DAILY 12/15/16 [History] Nystatin Cream [Mycostatin Cream] 1 appl TP BID PRN 12/15/16 [History] Pantoprazole Sodium [Protonix] 40 mg PO DAILY 12/15/16 [History] Pregabalin [Lyrica] 150 mg PO BID 12/15/16 [History] Promethazine HCl 12.5 mg PO Q6H PRN 12/15/16 [History] Lidocaine Patch [Lidoderm 5% patch] 1 each TP DAILY PRN #5 adh..patch 02/01/17 [Rx] Methocarbamol [Robaxin-750] 750 mg PO HS 02/26/18 [History] Tocilizumab [Actemra] 162 mg SQ ALANIZ 02/26/18 [History] traZODone [TraZODone] 50 - 100 mg PO HS 02/26/18 [History] Meclizine [Antivert] 25 mg PO TID #15 tablet 10/13/18 [Rx] BuPROPion SR (12 HR) [Wellbutrin SR] 150 mg PO DAILY 02/18/19 [History] Oxycodone HCl/Acetaminophen [Percocet 5-325 mg Tablet] 1 each PO Q6H PRN 2 Days #8 tablet 02/28/19 [Rx] Clopidogrel [Plavix] 75 mg PO HS 03/10/19 [History] Dicyclomine Hcl [Bentyl] 20 mg PO AD 03/10/19 [History] Furosemide [Lasix] 20 mg PO BID PRN 03/10/19 [History] Lisinopril [Zestril] 5 mg PO DAILY 03/10/19 [History] Ondansetron HCl 4 mg PO Q8H PRN 03/10/19 [History] Doxycycline 100 mg PO BID 21 Days #42 capsule 03/14/19 [Rx] cephALEXin [Keflex] 500 mg PO TID 21 Days #63 capsule 03/14/19 [Rx] Allergies/Adverse Reactions: Allergy/AdvReac Type Severity Reaction Status Date / Time Erythromycin Base Allergy Rash Verified 03/10/19 10:36 Fish Containing Products Allergy Hives Verified 03/10/19 10:36 fish derived Allergy Hives Verified 03/10/19 10:36 fish oil Allergy Hives Verified 03/10/19 10:36 hydromorphone [From Dilaudid] Allergy Rash Verified 03/10/19 10:36 morphine Allergy Rash Verified 03/10/19 10:36 Certification: Further, I certify that my clinical findings support that this patient is homebound (i.e. absences from home require considerable and taxing effort and are for medical reasons or congregational services or infrequently or short duration when for other reasons) because: Homebound Reason: Leaving home requires considerable and taxing effort due to condition Attestation: My signature below is to certify that this patient is under my care and that I, or nurse practitioner, or a physician's hardware sales assistant working with me, has a [id number] encounter with this patient.
[2019-03-14] MEDS: *HR* OxyCODONE Immed Rel 5 MG TABLET PO PRN (15:11)
[2019-03-14] MEDS ORDERED: Aminoglycoside Consult 1 EACH MC ONE (15:44)
--- NOTE | 2019-03-14 18:18 | Infectious Disease Progress No ---
ID Progress Note Date of Encounter: 03/14/19 Time of Encounter: 18:17 - Subjective Subjective: Patient seen and examined. No chest pain. No SOB. NO diarrhea. No urinary symptoms. states the elbow and knee pain are better somewhat VS noted labs reviewed Cultures No growth to date - Objective CBC & Chem 7: 03/14/19 02:01 03/14/19 02:01 - Exam Vitals: Temp Pulse Resp BP Pulse Ox 98.6 F 63 19 161/78 100 03/14/19 12:25 03/14/19 12:25 03/14/19 12:25 03/14/19 12:25 03/14/19 12:25 Exam: GENERAL: Comfortable. Laying in bed NAD HEENT: TWAN, EOMI LUNGS: Good air sounds bilaterally, no wheezing or rhonchi CV: RRR, S1 S2 ABDOMEN: Soft, nontender, + bowel sounds EXT: Right upper extremity in a soft cast. Right knee with no drainage no pus no erythema NEURO: A&OX3; no focal deficit - Assessment and Plan (1) Traumatic hematoma of right knee Status: Acute s/p fall 02/28/19 s/p I&D of hematoma of the right knee 03/[address] Jean; intra op cultures negative s/p bedside I&D by Dr. Kamara 03/09 and excision of necrotic tissue currently on vancomycin and cefepime continue current regimen for now but plan to switch to oral bactrim/keflex on d/c to treat for 3-4 weeks Discussed with the hospitalist team. Patient refused Bactrim because it causes her acute kidney injury in the past. We will do a combination of doxycycline and Keflex. Duration of treatment 3-4 weeks. Patient instructed to call us if in 3-4 weeks the wound is not improving is getting worse it is not healing etc. will d/w ortho to see if they are okay with plan monitor labs and for drug toxicity get baseline CRP and ESR Qualifiers: Encounter type: initial encounter Qualified Code(s): S80.01XA - Contusion of right knee, initial encounter SNOMED Code(s): 52715374, 584774579 (2) Wrist fracture, right Status: Chronic secondary to a fall 02/28 s/p ORIF 03/[address] Villa Qualifiers: Encounter type: subsequent encounter Fracture type: closed Fracture healing: with routine healing Qualified Code(s): S62.101D - Fracture of unspecified carpal bone, right wrist, subsequent encounter for fracture with routine healing SNOMED Code(s): 189284766, 732002415 (3) Immunosuppressed status Status: Acute currently only on plaquenil SNOMED Code(s): 61411324 (4) Rheumatoid arthritis Status: Chronic Qualifiers: Rheumatoid arthritis location: wrist Rheumatoid factor presence: unspecified presence Laterality: unspecified laterality Qualified Code(s): M06.9 - Rheumatoid arthritis, unspecified SNOMED Code(s): 66049955 (5) Neutropenia Status: Acute etiology? could be due to plaquenil? Qualifiers: Neutropenia type: unspecified Qualified Code(s): D70.9 - Neutropenia, unspecified SNOMED Code(s): 106036432 (6) Rheumatoid arthritis Status: Chronic Qualifiers: Rheumatoid arthritis location: hand Rheumatoid factor presence: unspecified presence Laterality: bilateral Qualified Code(s): M06.9 - Rheumatoid arthritis, unspecified SNOMED Code(s): 60019427 (7) H/O total knee replacement Status: Acute Qualifiers: Laterality: bilateral Qualified Code(s): Z96.653 - Presence of artificial knee joint, bilateral SNOMED Code(s): 6814778418748, 8119259390953, [id number] Consult Discharge Plan - Plan Instructions: Cephalexin (By mouth), Doxycycline (By mouth) Additional Instructions: Call [facility] when you get home to have Bedside commode delivered #[phone]. Referrals: Jennifer Steinberg PAC [Physician Federal Law Clerk] - 03/20/19 9:30 am Jake Conde DO [Primary Care Provider] - 03/19/19 2:20 pm () Prescriptions: Doxycycline 100 mg PO BID 21 Days #42 capsule cephALEXin [Keflex] 500 mg PO TID 21 Days #63 capsule
== END 2019-03-14 15:45 | disposition home health service (06) | DRG 502 ==
LOC: EMEROOARM 12:37 → 3BNU 12:37 → SUATTDRO 17:03 → 3BNU 17:42
PROVIDERS: ADMIT Internal Medicine; ATTEND Internal Medicine

== ENCOUNTER 2019-04-10 11:46 | Inpatient (IN) ==
[2019-04-10] MEDS ORDERED: MOM Conc 10 ML UD.LIQ PO PRN (12:23)
[2019-04-10] MEDS ORDERED: Naloxone 0.4 MG/ML INJ IVP PRN (12:23)
[2019-04-10] MEDS ORDERED: Ondansetron 4 MG/2 ML VIAL IVP PRN (12:23)
[2019-04-10 13:10] LABS: Basophils % 0.7 %; Eosinophils # 0.2 K/mcL (0.0-0.6); Eosinophils % 4.5 %; Hematocrit 37.5 % (35.3-44.9); Hemoglobin 12.4 g/dL (11.5-15.4); Immature Granulocytes % 0.2 % (0-4); Lymphocytes # 1.3 K/mcL (0.6-4.6); Lymphocytes % 31.5 %; Mean Corpuscular HGB Conc 33.1 g/dL (31.6-35.5); Mean Corpuscular Hemoglobin 33.7 pg (28.0-33.3); Mean Corpuscular Volume 101.9 fL (83.0-100.0); Monocytes # 0.5 K/mcL (0.0-1.3); Monocytes % 11.4 %; Neutrophils # 2.1 K/mcL (1.6-8.9); Platelet Count 167 K/mcL (140-400); Red Blood Count 3.68 M/mcL (3.82-4.97); Red Cell Distribution Width 11.9 % (11.5-14.5); Segmented Neutrophils % 51.7 %
[2019-04-10] MEDS: *HR* Heparin 5,000 UNIT/ML VIAL SQ SCH ×2 (13:25→18:11)
[2019-04-10 13:38] LABS: Alanine Aminotransferase 19 Units/L (7-52); Albumin 3.9 g/dL (3.5-5.7); Albumin/Globulin Ratio 2.1 (1.1-2.2); Alkaline Phosphatase 56 Units/L (34-104); Aspartate Amino Transferase 21 Units/L (13-39); BUN/Creatinine Ratio 30 (6-26); Bilirubin,Total 0.5 mg/dL (0.3-1.0); Blood Urea Nitrogen 29 mg/dL (8-23); Calcium 8.7 mg/dL (8.6-10.3); Carbon Dioxide 27 mEq/L (23-29); Chloride 108 mEq/L (98-107); Globulin 1.9 g/dL (2.4-3.5); Glucose 86 mg/dL (70-105); Magnesium 2.2 mg/dL (1.6-2.6); Osmolality,Calculated 297 (280-300); Potassium 4.7 mEq/L (3.5-5.1); Sodium 141 mEq/L (136-145); Total Protein 5.8 g/dL (6.4-8.9); eGFR For African Americans > 60 (> 60); eGFR For Non-African Americans 58 (> 60)
--- NOTE | 2019-04-10 14:58 | Internal Med History&Physical ---
Date of Encounter: 04/10/19 Time of Encounter: 13:00 Internal Medicine - H&P: HPI Chief complaint: R foot pain Admitted From: Direct Admit Plans for Post Hospital Care: Home History of present illness: Ms. Serrano is a 64 year old female with hx of RA on immunosuppressant medication sent as direct admit from ID office for R foot pain and wound. Ms Serrano was recently admitted with traumatic hematoma of R knee with wound that was draining.. She was managed on IV abx in the hospital and discharged home 03/09/2019 on PO Keflex and doxy which she completed on 04/04. While on abx she has developed a wound on the top of her R foot. She had some clear fluid drain from it but no purulent material. She was seen by her PCP and placed on Clindamycin. She says there has been less erythema but more pain. She is conc erned because her entire foot and ankle are swollen. She denies fever and chills. No CP or SOB. No cough or other symptoms other than pain. She was seen in ID office today and due to concern that this began while on abx she has been admitted to the hospital. At the current time her only complaint is pain in her R foot. She has significant neuropathy which is treated with meds at home. She also takes Vicodin for her RA pain as well. Past Med Surg Social Fam HX - Past Medical History Source: patient, old records reviewed Medical history: arthritis, fibromyalgia, GERD, RA, renal disease, TIA Additional medical history: insufficient pancreatic enzyme. Stage 3 Renal dis ease Psychiatric history: anxiety, depression - Past Surgical History Surgical History: , cholecystectomy, hysterectomy, knee replacement, other Additional surgical history: aortic repair 2014. bowel resection. gastric bypass - Social History Smoking Status: Never smoker Smokeless Tobacco Status: No Alcohol use: rarely Drug use: none - Family History Mother Family Member Ethnicity: Non- Hx Family Cardiac Disorders: Yes (Angina, HD) Hx Family Endocrine Disorder: Yes (DM) Sister Family Member Ethnicity: Non- Living Status: Hx Family Cardiac Disorders: Yes (HD) Hx Family Endocrine Disorder: Yes (DM) Father Family Member Ethnicity: Non- Living Status: Hx Family Cardiac Disorders: Yes (HD, [place]) Hx Family Endocrine Disorder: Yes (DM) Internal Medicine - H&P: Meds Bupropion HCl [Wellbutrin Xl] 300 mg PO DAILY 12/15/16 [History] Duloxetine HCl [Cymbalta] 60 mg PO BID 12/15/16 [History] Folic Acid 1 mg PO DAILY 12/15/16 [History] Glucosamn/Condroitn/C/Mn/[place] [Cvs Glucosamine Chondroitin Tb] 1 tab PO BID 12/15/16 [History] Hydroxychloroquine [Plaquenuil] 400 mg PO DAILY 12/15/16 [History] L. Acidophilus/Pectin, [place] [Acidophilus Probiotic Capsule] 1 cap PO DAILY 12/15/16 [History] Lipase/Protease/Amylase [Cyn Rodriguez 24,000 Units Capsule] 1 cap PO BID MDD with snacks 12/15/16 [History] Lipase/Protease/Amylase [Cyn Rodriguez 36,000 Units Capsule] 1 cap PO TIDWM 12/15/16 [History] Multivitamin [Multi-Day Vitamins] 1 tab PO DAILY 12/15/16 [History] Nystatin Cream [Mycostatin Cream] 1 appl TP BID PRN 12/15/16 [History] Pantoprazole Sodium [Protonix] 40 mg PO DAILY 12/15/16 [History] Pregabalin [Lyrica] 150 mg PO BID 12/15/16 [History] Promethazine HCl 12.5 mg PO Q6H PRN 12/15/16 [History] Lidocaine Patch [Lidoderm 5% patch] 1 each TP DAILY PRN #5 adh..patch 02/01/17 [Rx] Methocarbamol [Robaxin-750] 750 mg PO HS 02/26/18 [History] Tocilizumab [Actemra] 162 mg SQ ALANIZ 02/26/18 [History] traZODone [TraZODone] 50 - 100 mg PO HS 02/26/18 [History] Meclizine [Antivert] 25 mg PO TID #15 tablet 10/13/18 [Rx] Oxycodone HCl/Acetaminophen [Percocet 5-325 mg Tablet] 1 each PO Q6H PRN 2 Days #8 tablet 02/28/19 [Rx] Clopidogrel [Plavix] 75 mg PO HS 03/10/19 [History] Dicyclomine Hcl [Bentyl] 20 mg PO AD 03/10/19 [History] Furosemide [Lasix] 20 mg PO BID PRN 03/10/19 [History] Lisinopril [Zestril] 5 mg PO DAILY 03/10/19 [History] Ondansetron HCl 4 mg PO Q8H PRN 03/10/19 [History] Doxycycline 100 mg PO BID 21 Days #42 capsule 03/14/19 [Rx] cephALEXin [Keflex] 500 mg PO TID 21 Days #63 capsule 03/14/19 [Rx] BuPROPion XL (24 HR) [Wellbutrin XL] 150 mg PO DAILY 04/10/19 [History] Allergy/AdvReac Type Severity Reaction Status Date / Time Erythromycin Base Allergy Rash Verified 03/10/19 10:36 Fish Containing Products Allergy Hives Verified 03/10/19 10:36 fish derived Allergy Hives Verified 03/10/19 10:36 fish oil Allergy Hives Verified 03/10/19 10:36 hydromorphone [From Dilaudid] Allergy Rash Verified 03/10/19 10:36 morphine Allergy Rash Verified 03/10/19 10:36 All Systems PM: A 10-system review of systems was performed and is negative for pertinent findings except as documented above in the HPI. - Constitutional Constitutional: fatigue, no fever(s), no malaise - EENT Eyes: no dry eye, no pain Ears: no decreased hearing Nose, mouth and throat: no dry mouth, no sinus pain - Cardiovascular Cardiovascular ROS IM: no chest pain, no dyspnea, no dyspnea on exertion, no orthopnea, no paroxysmal nocturnal dyspnea - Respiratory Respiratory: no cough, no dyspnea on exertion, no wheezing - Gastrointestinal Gastrointestinal: no abdominal pain, no diarrhea, no nausea, no vomiting - Genitourinary Genitourinary: no dysuria, no nocturia, no urinary frequency, no urinary hesitancy - Musculoskeletal Musculoskeletal ROS IM: arthralgias, deformity, joint swelling, limited range of motion, stiffness - Integumentary Integumentary IM: no erythema, no rash Additional comments: Wound on top of R foot. - Neurological Neurological ROS: paresthesias, no dizziness, no memory loss - Endocrine Endocrine IM: no excessive sweating - Hematologic/Lymphatic Hematologic/Lymphatic: no easy bleeding - Allergic/Immunologic Allergic/Immunologic: no seasonal rhinorrhea - Constitutional Vitals: Temp Pulse Resp BP Pulse Ox 98 F 65 16 141/71 96 08/14/19 12:21 04/10/19 12:21 04/10/19 12:21 04/10/19 12:21 04/10/19 12:21 General appearance: Present: A&O X 3, answers questions appropriately Exam: See below - Head Head exam: Present: atraumatic, normocephalic - Eye Eye exam: Present: EOMI, conjuntiva pink - ENT ENT exam: Present: mucous membranes moist - Respiratory Respiratory exam: Present: CTAB. Absent: rales, rhonchi, wheezes - Cardiovascular Cardiovascular exam: Present: RRR. Absent: systolic murmur, tachycardia - GI/Abdominal GI/Abdominal exam: Present: soft. Absent: tenderness - Extremities Exam Extremities exam: Present: warm Additional comments: No drainage from R knee. R foot with raised erythematous area on top of foot. Entire foot and ankle are swollen as well. - Neurological Exam Neurological exam: Present: alert, oriented X3 - Skin Skin exam: Present: dry, erythema, warm. Absent: rash Internal Med - H&P Results - Labs CBC & Chem 7: 04/10/19 12:54 04/10/19 12:54 Labs: Short CBC 04/10/19 Range/Units 12:54 WBC 4.0 L (4.3-11.1) K/mcL Hgb 12.4 (11.5-15.4) g/dL Hct 37.5 (35.3-44.9) % Plt Count 167 (140-400) K/mcL Neutrophils # 2.1 (1.6-8.9) K/mcL BMP 04/10/19 12:54 Sodium 141 Potassium 4.7 Chloride 108 H Carbon Dioxide 27 BUN 29 H Creatinine 0.97 Glucose 86 Calcium 8.7 Liver Function 04/10/19 Range/Units 12:54 Total Bilirubin 0.5 (0.3-1.0) mg/dL AST 21 (13-39) Units/L ALT 19 (7-52) Units/L Alkaline Phosphatase 56 (34-104) Units/L Albumin 3.9 (3.5-5.7) g/dL - Assessment and Plan (1) Cellulitis Current Visit: No Status: Acute Assessment and plan: Pt presented to ID clinic today for routine follow up and found to have erythema and swelling of area on top of R foot. She was direct admitted for further treatment. Admit to med surg. Labs and blood cultures obtained. ID consult Podiatry consult CT of R foot ordered to eval for deep infection. Venous duplex to r/o DVT Pt at high risk due to immunocompromised status. Qualifiers: Site of cellulitis: extremity Site of cellulitis of extremity: lower extremity Laterality: right Qualified Code(s): L03.115 - Cellulitis of right lower limb (2) Traumatic hematoma of right knee Current Visit: No Status: Acute Assessment and plan: Pt recently admitted for hematoma and wound infection. This has been resolving with treatment. Qualifiers: Encounter type: subsequent encounter Qualified Code(s): S80.01XD - Contusion of right knee, subsequent encounter (3) Immunosuppression due to drug therapy Current Visit: No Status: Chronic Assessment and plan: Pt with hx of RA on immunosuppressant. (4) Rheumatoid arthritis Current Visit: No Status: Chronic Assessment and plan: Pt has detention history of RA on medications. Does not appear to have active disease at this time. Qualifiers: Rheumatoid arthritis location: hand Rheumatoid factor presence: unspecified presence Laterality: bilateral Qualified Code(s): M06.9 - Rheumatoid arthritis, unspecified (5) Neuropathy Current Visit: Yes Status: Chronic Assessment and plan: Currently on Lyrica with increased pain. Will increase dose at this time. (6) Pancreatic insufficiency Current Visit: Yes Status: Chronic Assessment and plan: Continue enzyme supplementation. - Time Spent With Patient Total time spent is greater than 50% in coordination of care (as documented) at patient's floor/unit and/or counseling patient:
[2019-04-10] MEDS ORDERED: Furosemide 20 MG TABLET PO PRN (15:06)
[2019-04-10] MEDS ORDERED: Nystatin Cream 15 GM TUBE TP PRN (15:18)
[2019-04-10] MEDS ORDERED: *HR* OxyCODONE/APAP 5/325 TABLET PO PRN (15:18)
[2019-04-10] MEDS ORDERED: Ondansetron ODT 4 MG TAB.RAPDIS PO PRN (15:18)
[2019-04-10] MEDS ORDERED: Acetaminophen 325 MG TABLET PO PRN (15:24)
--- NOTE | 2019-04-10 15:54 | Podiatry Consult Note ---
Date of Encounter: 04/10/19 Time of Encounter: 15:10 Assessment and Plan (1) Fracture of metatarsal bone of right foot Current visit: Yes Status: Acute Assessment: -Erythema and edema right dorsal forefoot probably related to fracture -Edema right lower extremity and warmer than left, if cellulitis more than likely related to knee wound not foot -2/4 PT/DP pulses -Cap refill less than 3 seconds -ESR 1, CRP <5 -WBC 4.0 -CT of right foot shows evidence of 2nd metatarsal fracture that is displaced and angulated. The CT did not show evidence of infection, abscess, soft tissue gas, or osteomyelitis. -Blood cultures pending Plan: -Due to swelling in right lower extremity recommend venous duplex study to rule out blood clot -Right foot x-ray -Spoke with Dr. Sheehan and plan is to surgically repair 2nd met fracture in the outpatient setting unless she is admitted for an extended period of time -Non-weight bearing but only heel touch for transfers -Post op shoe -Dressing applied using 4x4, kerlix, and medipore tape Qualifiers: Encounter type: initial encounter Metatarsal bone: second Fracture type: closed Fracture alignment: displaced Qualified Code(s): S92.321A - Displaced fracture of second metatarsal bone, right foot, initial encounter for closed fracture History of Present Illness HPI: Ms. Serrano is a 64 year old female direct admitted from the ID office due to pain, swelling, and wound to dorsal forefoot right foot. She does have a past medical history of RA and takes immunosuprressant medication, arthritis, fibromyalgia, GERD, renal disease, and TIA. Patient reports that on February 28 she fell and was diagnosed with a right wrist fracture. At that time she had a traumatic hematoma to the right knee as well. On March 07 she underwent an ORIF of the right wrist and had 1 liter of fluid drained from the right knee by Dr. Jean. She reports she went home without complications, but was admitted to the hospital on March 11 for an infection right knee. She was discharged on Keflex and doxy and has been following up outpatient with ID and wound care. She reports that after her discharge around March 18 she developed erythema, edema, and pain right foot. She denies any trauma to the right foot and states I thought it was a spider bite. She denies any fever, vomiting, or diarrhea. She denies any chest pain, shortness of breath, or calf pain. She does report chills and nausea. A CBC was obtained upon admission and WBC 4.0. ESR 1 and CRP <5. A CT of the right foot showed evidence of 2nd metatarsal fracture with mild dislocation and angulation. There was no evidence of osteomyelitis, abscess, soft tissue gas, or infection. Patient reports she rarely drinks alcohol and denies use of tobacco or illicit drugs. Past Med Surg Social Fam HX - Past Medical History Medical history: arthritis, fibromyalgia, GERD, RA, renal disease, TIA Additional medical history: insufficient pancreatic enzyme. Stage 3 Renal disease Psychiatric history: anxiety, depression - Past Surgical History Surgical History: , cholecystectomy, hysterectomy, knee replacement, other Additional surgical history: aortic repair 2015. bowel resection. gastric bypass - Social History Smoking Status: Never smoker Smokeless Tobacco Status: No Alcohol use: rarely Drug use: none - Family History Mother Family Member Ethnicity: Non- Hx Family Cardiac Disorders: Yes (Angina, HD) Hx Family Endocrine Disorder: Yes (DM) Sister Family Member Ethnicity: Non- Living Status: Hx Family Cardiac Disorders: Yes (HD) Hx Family Endocrine Disorder: Yes (DM) Father Family Member Ethnicity: Non- Living Status: Hx Family Cardiac Disorders: Yes (HD, [place]) Hx Family Endocrine Disorder: Yes (DM) Medications and Allergies Bupropion HCl [Wellbutrin Xl] 300 mg PO DAILY 12/15/16 [History] Duloxetine HCl [Cymbalta] 60 mg PO BID 12/15/16 [History] Folic Acid 1 mg PO DAILY 12/15/16 [History] Glucosamn/Condroitn/C/Mn/[place] [Cvs Glucosamine Chondroitin Tb] 1 tab PO BID 12/15/16 [History] Hydroxychloroquine [Plaquenuil] 400 mg PO DAILY 12/15/16 [History] L. Acidophilus/Pectin, [place] [Acidophilus Probiotic Capsule] 1 cap PO DAILY 12/15/16 [History] Lipase/Protease/Amylase [Cyn Rodriguez 24,000 Units Capsule] 1 cap PO BID MDD with snacks 12/15/16 [History] Lipase/Protease/Amylase [Cyn Rodriguez 36,000 Units Capsule] 1 cap PO TIDWM 12/15/16 [History] Multivitamin [Multi-Day Vitamins] 1 tab PO DAILY 12/15/16 [History] Nystatin Cream [Mycostatin Cream] 1 appl TP BID PRN 12/15/16 [History] Pantoprazole Sodium [Protonix] 40 mg PO DAILY 12/15/16 [History] Pregabalin [Lyrica] 150 mg PO BID 12/15/16 [History] Promethazine HCl 12.5 mg PO Q6H PRN 12/15/16 [History] Lidocaine Patch [Lidoderm 5% patch] 1 each TP DAILY PRN #5 adh..patch 02/01/17 [Rx] Methocarbamol [Robaxin-750] 750 mg PO HS 02/26/18 [History] Tocilizumab [Actemra] 162 mg SQ ALANIZ 02/26/18 [History] traZODone [TraZODone] 50 - 100 mg PO HS 02/26/18 [History] Meclizine [Antivert] 25 mg PO TID #15 tablet 10/13/18 [Rx] Oxycodone HCl/Acetaminophen [Percocet 5-325 mg Tablet] 1 each PO Q6H PRN 2 Days #8 tablet 02/28/19 [Rx] Clopidogrel [Plavix] 75 mg PO HS 03/10/19 [History] Dicyclomine Hcl [Bentyl] 20 mg PO AD 03/10/19 [History] Furosemide [Lasix] 20 mg PO BID PRN 03/10/19 [History] Lisinopril [Zestril] 5 mg PO DAILY 03/10/19 [History] Ondansetron HCl 4 mg PO Q8H PRN 03/10/19 [History] Doxycycline 100 mg PO BID 21 Days #42 capsule 03/14/19 [Rx] cephALEXin [Keflex] 500 mg PO TID 21 Days #63 capsule 03/14/19 [Rx] BuPROPion XL (24 HR) [Wellbutrin XL] 150 mg PO DAILY 04/10/19 [History] Allergy/AdvReac Type Severity Reaction Status Date / Time Erythromycin Base Allergy Rash Verified 03/10/19 10:36 Fish Containing Products Allergy Hives Verified 03/10/19 10:36 fish derived Allergy Hives Verified 03/10/19 10:36 fish oil Allergy Hives Verified 03/10/19 10:36 hydromorphone [From Dilaudid] Allergy Rash Verified 03/10/19 10:36 morphine Allergy Rash Verified 03/10/19 10:36 All Systems Reviewed: The remainder of the systems were reviewed and are negative - Constitutional Additional comments: As per HPI - Cardiovascular Cardiovascular: no chest pain, no dyspnea - Respiratory Respiratory: no cough, no dyspnea Physical Exam - Constitutional Vitals: Temp Pulse Resp BP Pulse Ox 98 F 65 16 141/71 96 04/10/19 12:21 04/10/19 12:21 04/10/19 12:21 04/10/19 12:21 04/10/19 12:21 Exam: Constitutional: Alert and oriented x 3, no acute distress noted Vascular: 2/4 PT/DP pulses noted bilaterally, cap refill less than 3 seconds, some mild discomfort noted with calf squeeze Dermatological: Erythema and edema noted right dorsal forefoot, no fluctuance, no signs of abscess, area hard to touch and tender. Right lower extremity slightly warmer than left and edema noted right lower extremity 1-2+. No edema noted to left lower extremity. Discoloration noted to lower extremities that appears to be venous insufficiency, patient reports it is due to her Plaquenil Neurological: positive plantar reflex, normal proprioception Musculoskeletal: 4/5 muscle strength, normal muscle tone Results - Labs Result Diagrams: 04/10/19 12:54 04/10/19 12:54 Labs: Abnormal lab results WBC 4.0 K/mcL (4.3-11.1) L 04/10/19 12:54 RBC 3.68 M/mcL (3.82-4.97) L 04/10/19 12:54 MCV 101.9 fL (83.0-100.0) H 04/10/19 12:54 MCH 33.7 pg (28.0-33.3) H 04/10/19 12:54 Chloride 108 mEq/L (98-107) H 04/10/19 12:54 BUN 29 mg/dL (8-23) H 04/10/19 12:54 Est GFR (Non-Af Amer) 58 (> 60) L 04/10/19 12:54 BUN/Creatinine Ratio 30 (6-26) H 04/10/19 12:54 Serum Total Protein 5.8 g/dL (6.4-8.9) L 04/10/19 12:54 Globulin 1.9 g/dL (2.4-3.5) L 04/10/19 12:54 H & H 04/10/19 Range/Units 12:54 Hgb 12.4 (11.5-15.4) g/dL Hct 37.5 (35.3-44.9) % All other labs normal. Consult Discharge Plan - Plan Referrals: NONE,PCP [Primary Care Provider] -
[2019-04-10] MEDS ORDERED: [UNRECOGNIZED DRUG - OTHER] PO SCH (17:00)
[2019-04-10] MEDS ORDERED: AMYLASE PO SCH (17:00)
[2019-04-10] MEDS ORDERED: PROTEASE PO SCH (17:00)
[2019-04-10] MEDS ORDERED: LIPASE PO SCH (17:00)
[2019-04-10] MEDS: *HR* HYDROcodone/Acet 5/325 mg TABLET PO PRN (18:11)
[2019-04-10] MEDS ORDERED: NON-FORMULARY MEDICATION 1 EACH EACH (Lipase/Protease/Amylase [Creon Dr 24,000 Units Capsu PO SCH (21:00)
[2019-04-10] MEDS: Methocarbamol 750 MG TABLET PO SCH (22:02)
[2019-04-10] MEDS: traZODone 50 MG TABLET PO SCH (22:02)
[2019-04-10] MEDS: Pregabalin 75 MG CAPSULE PO SCH (22:02)
[2019-04-11] MEDS: Piperacillin/Tazobactam 3.375 GM in 0.9 % Sodium Chloride Mini Bag 100 ML IVPB SCH ×4 (00:35→18:30)
[2019-04-11 04:54] LABS: Hematocrit 34.9 % (35.3-44.9); Hemoglobin 11.5 g/dL (11.5-15.4); Mean Corpuscular Hemoglobin 33.5 pg (28.0-33.3); Mean Corpuscular Volume 101.7 fL (83.0-100.0); Mean Platelet Volume 11.4 fL (9.4-12.4); Platelet Count 145 K/mcL (140-400); Red Blood Count 3.43 M/mcL (3.82-4.97); Red Cell Distribution Width 11.9 % (11.5-14.5); White Blood Count 3.4 K/mcL (4.3-11.1)
[2019-04-11 05:15] LABS: BUN/Creatinine Ratio 25 (6-26); Blood Urea Nitrogen 23 mg/dL (8-23); Calcium 8.5 mg/dL (8.6-10.3); Carbon Dioxide 25 mEq/L (23-29); Chloride 108 mEq/L (98-107); Glucose 83 mg/dL (70-105); Osmolality,Calculated 297 (280-300); Potassium 4.3 mEq/L (3.5-5.1); Sodium 142 mEq/L (136-145); eGFR For African Americans > 60 (> 60); eGFR For Non-African Americans > 60 (> 60)
[2019-04-11] MEDS: *HR* Heparin 5,000 UNIT/ML VIAL SQ SCH ×3 (05:47→21:13)
[2019-04-11] MEDS: Pregabalin 75 MG CAPSULE PO SCH ×2 (08:14→21:14)
[2019-04-11] MEDS: BuPROPion XL (24 HR) 150 MG TABLET PO SCH (08:14)
[2019-04-11] MEDS: Folic Acid 1 MG TABLET PO SCH (08:15)
[2019-04-11] MEDS ORDERED: BuPROPion SR (12 HR) 150 MG TABLET PO SCH (09:00)
[2019-04-11] MEDS ORDERED: BuPROPion XL (24 HR) 150 MG TABLET PO SCH (09:00)
[2019-04-11] MEDS: *HR* HYDROcodone/Acet 5/325 mg TABLET PO PRN ×2 (10:24→21:14)
--- NOTE | 2019-04-11 10:52 | Internal Med Progress Note ---
Hospitalist Progress Note - Encounter Date of Encounter: 04/11/19 Time of Encounter: 10:52 - Subjective Interval History: Patient was seen and examined earlier this morning denies any pain or discomfort states her swelling her lower extremities are improved discuss reimplant the patient which includes evaluation by PT OT for possible rehabilitation as well as venous duplex evaluation for DVT patient verbalizes understanding - Exam Vitals: Temp Pulse Resp BP Pulse Ox 98.3 F 72 17 159/77 93 04/11/19 06:52 04/11/19 06:52 04/11/19 06:52 04/11/19 06:52 04/11/19 06:52 Exam: Skin: Free of rash and discoloration. Eyes: Sclera is white. There is no discharge from eyes. ENMT: Oral/pharyngeal mucosa is normal in appearance. There is no discharge from nose or ears. Respiratory: Normal breath sounds with no crackles and wheezes bilaterally. CV: Heart is regular with no gallop or murmur. GI: Abdomen is flat and soft with no palpable mass or visceromegaly. : There is no tenderness in patient's flanks bilaterally. Neuro exam: He has good strength in upper and lower extremities. He has normal eye movements. Psychiatric: He has normal affect. His thought process is appropriate to the situation. - Assessment and Plan (1) Cellulitis Current Visit: No Status: Acute Assessment and Plan: Pt presented to ID clinic today for routine follow up and found to have erythema and swelling of area on top of R foot. She was direct admitted for further treatment. Admit to med surg. Labs and blood cultures obtained. ID consult Podiatry consult CT of R foot ordered to eval for deep infection. Venous duplex to r/o DVT Pt at high risk due to immunocompromised status. 04/11 ID and podiatry consulted Venous duplex ordered Foot CT IMPRESSION: Subacute-appearing mildly comminuted and mildly displaced obliquely oriented fracture involving the distal shaft of the 2nd metatarsal. Associated soft tissue swelling about the fracture. Subcutaneous edema somewhat diffusely about the foot, most prominent to the dorsal mid to forefoot. No focal fluid collection to suggest abscess formation on this noncontrast exam. No definite discrete open wound/ulcer identified. No CT evidence for osteomyelitis identified. Mild degenerative changes to the mid and forefoot. 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 Does not appear to have active disease at this time. (3) Immunosuppression due to drug therapy Current Visit: No Status: Chronic Assessment and Plan: Pt with hx of RA on immunosuppressant. (4) Traumatic hematoma of right knee Current Visit: No Status: Acute Assessment and Plan: Pt recently admitted for hematoma and wound infection. This has been resolving with treatment. (5) Neuropathy Current Visit: Yes Status: Chronic Assessment and Plan: Currently on Lyrica with increased pain. Will increase dose at this time. (6) Pancreatic insufficiency Current Visit: Yes Status: Chronic Assessment and Plan: Continue enzyme supplementation. - Time Spent with Patient Total time spent is greater than 50% in coordination of care (as documented) at patient's floor/unit and/or counseling patient: Internal Medicine: Result - Labs CBC & Chem 7: 04/11/19 03:40 04/11/19 03:40 Labs: Short CBC 04/10/19 04/11/19 Range/Units 12:54 03:40 WBC 4.0 L 3.4 L (4.3-11.1) K/mcL Hgb 12.4 11.5 (11.5-15.4) g/dL Hct 37.5 34.9 L (35.3-44.9) % Plt Count 167 145 (140-400) K/mcL Neutrophils # 2.1 (1.6-8.9) K/mcL BMP 04/10/19 04/11/19 12:54 03:40 Sodium 141 142 Potassium 4.7 4.3 Chloride 108 H 108 H Carbon Dioxide 27 25 BUN 29 H 23 Creatinine 0.97 0.92 Glucose 86 83 Calcium 8.7 8.5 L Liver Function 04/10/19 Range/Units 12:54 Total Bilirubin 0.5 (0.3-1.0) mg/dL AST 21 (13-39) Units/L ALT 19 (7-52) Units/L Alkaline Phosphatase 56 (34-104) Units/L Albumin 3.9 (3.5-5.7) g/dL - Impressions Impressions Foot CT 04/10/19 12:28 IMPRESSION: Subacute-appearing mildly comminuted and mildly displaced obliquely oriented fracture involving the distal shaft of the 2nd metatarsal. Associated soft tissue swelling about the fracture. Subcutaneous edema somewhat diffusely about the foot, most prominent to the dorsal mid to forefoot. No focal fluid collection to suggest abscess formation on this noncontrast exam. No definite discrete open wound/ulcer identified. No CT evidence for osteomyelitis identified. Mild degenerative changes to the mid and forefoot. D/ / 04/10/2019 15:01:06 Gera Harrington MD / tima Interpreting Provider: Gera Harrington MD Foot X-Ray 04/10/19 15:55 IMPRESSION: 2nd metatarsal fracture D/ / Morales Xiong MD / Morales Xiong MD Interpreting Provider: Morales Xiong MD Consult Discharge Plan - Plan Referrals: NONE,PCP [Primary Care Provider] - (1) Cellulitis Qualifiers: Site of cellulitis: extremity Site of cellulitis of extremity: lower extremity Laterality: right Qualified Code(s): L03.115 - Cellulitis of right lower limb (2) Rheumatoid arthritis Qualifiers: Rheumatoid arthritis location: hand Rheumatoid factor presence: unspecified presence Laterality: bilateral Qualified Code(s): M06.9 - Rheumatoid arthritis, unspecified (4) Traumatic hematoma of right knee Qualifiers: Encounter type: subsequent encounter Qualified Code(s): S80.01XD - Contusion of right knee, subsequent encounter
--- NOTE | 2019-04-11 16:37 | Event Note ---
Date of Encounter: 04/11/19 Time of Encounter: 16:35 Spoke with patient at bedside regarding her 2nd metatarsal fracture. I believe the swelling is due to the underlying displacement of the metatarsal fracture rather than acute infection or abscess of the foot. Will plan for outpatient ORIF of the fracture. If she is still admitted through the weekend, will consider surgery on Monday or Monday. Patient will follow up with Kee Sheehan DPM early next week to schedule outpatient surgery if discharged today.
--- NOTE | 2019-04-11 19:27 | Infectious Disease Consult ---
Infectious Disease-Consult - Encounter Date/Time Date of Encounter: 04/11/19 Time of Encounter: 19:25 - Data of Consult Patient: known to practice within the last 3 years Reason for consult: cellulitis left foot failed outpatient antibiotics treatment Requesting Physician: Bobby Parry DO Primary Care Provider: PCP NONE - HPI HPI: Briefly, patient was seen by us at [facility] on March 142018 for traumatic hem atoma of the right knee status post even evacuation with orthopedics. At that time cultures were negative but we are concerned because the patient had a prosthetic so we treated her with Keflex and doxycycline for 4 weeks total. While on treatment on 03/17/2019 patient is having pain and swelling erythema on the dorsum of the right foot that looks like [place] with fluctuance. Patient was seen by her PCP and also give her a course of clindamycin with no improvement. The symptoms started while the patient was on Keflex and doxycycline so clearly the antibiotics we had her on did not help. Patient also feels that she was having chills and she had subjective low-grade fevers at home. Patient tells me that the lesion is very painful as well. Patient was evaluated by me in clinic and I was concerned for failed treatment with antibiotics. Patient was sent for direct admission. This evening doctor was Dr. Prary and she accepted that. Since admission, patient has had no SIRS criteria. CT of the leg revealed: Subacute-appearing mildly comminuted and mildly displaced obliquely oriented fracture involving the distal shaft of the 2nd metatarsal. Associated soft tissue swelling about the fracture. Subcutaneous edema somewhat diffusely about the foot, most prominent to the dorsal mid to forefoot. No focal fluid collection to suggest abscess formation on this noncontrast exam. No definite discrete open wound/ulcer identified. - ROS Review of Systems: 10 point review of systems done, negative other for what is mentioned in the history of present illness - Results CBC & Chem 7: 04/11/19 03:40 04/11/19 03:40 - Exam Vitals: Temp Pulse Resp BP Pulse Ox 98.1 F 77 16 135/75 95 04/11/19 18:59 04/11/19 18:59 04/11/19 18:59 04/11/19 18:59 04/11/19 18:59 Exam: GENERAL: Comfortable. Laying in bed NAD HEENT: TWAN, EOMI LUNGS: Good air sounds bilaterally, no wheezing or rhonchi CV: RRR, S1 S2 ABDOMEN: Soft, nontender, + bowel sounds EXT: Adequate perfusion. No edema. Erythema and edema on the dorsum of the right foot has significantly improved. NEURO: A&OX3; no focal deficit Bupropion HCl [Wellbutrin Xl] 300 mg PO DAILY 12/15/16 [History] Duloxetine HCl [Cymbalta] 60 mg PO BID 12/15/16 [History] Folic Acid 1 mg PO DAILY 12/15/16 [History] Glucosamn/Condroitn/C/Mn/[place] [Cvs Glucosamine Chondroitin Tb] 1 tab PO BID 12/15/16 [History] Hydroxychloroquine [Plaquenuil] 400 mg PO DAILY 12/15/16 [History] L. Acidophilus/Pectin, [place] [Acidophilus Probiotic Capsule] 1 cap PO DAILY 12/15/16 [History] Lipase/Protease/Amylase [[place] 24,000 Units Capsule] 1 cap PO BID MDD with snacks 12/15/16 [History] Lipase/Protease/Amylase [[place]yn [place] 36,000 Units Capsule] 1 cap PO TIDWM 12/15/16 [History] Multivitamin [Multi-Day Vitamins] 1 tab PO DAILY 12/15/16 [History] Nystatin Cream [Mycostatin Cream] 1 appl TP BID PRN 12/15/16 [History] Pantoprazole Sodium [Protonix] 40 mg PO DAILY 12/15/16 [History] Pregabalin [Lyrica] 150 mg PO BID 12/15/16 [History] Lidocaine Patch [Lidoderm 5% patch] 1 each TP DAILY PRN #5 adh..patch 02/01/17 [Rx] Methocarbamol [Robaxin-750] 750 mg PO HS 02/26/18 [History] traZODone [TraZODone] 50 - 100 mg PO HS 02/26/18 [History] Meclizine [Antivert] 25 mg PO TID #15 tablet 10/13/18 [Rx] Clopidogrel [Plavix] 75 mg PO HS 03/10/19 [History] Dicyclomine Hcl [Bentyl] 20 mg PO AD 03/10/19 [History] Furosemide [Lasix] 20 mg PO BID PRN 03/10/19 [History] Lisinopril [Zestril] 5 mg PO DAILY 03/10/19 [History] Ondansetron HCl 4 mg PO Q8H PRN 03/10/19 [History] BuPROPion XL (24 HR) [Wellbutrin XL] 150 mg PO DAILY 04/10/19 [History] Clindamycin HCl 300 mg PO QID 04/11/19 [History] HYDROcodone/Acet 10/325 mg [[place] 10-325 mg] 1 tab PO Q8H PRN 04/11/19 [History] Allergy/AdvReac Type Severity Reaction Status Date / Time Erythromycin Base Allergy Rash Verified 04/11/19 08:58 Fish Containing Products Allergy Hives Verified 04/11/19 08:58 fish derived Allergy Hives Verified 04/11/19 08:58 fish oil Allergy Hives Verified 04/11/19 08:58 hydromorphone [From Dilaudid] Allergy Rash Verified 04/11/19 08:58 morphine Allergy Rash Verified 04/11/19 08:58 - Assessment and Plan (1) Fracture of metatarsal bone of right foot Current Visit: Yes Status: Acute Patient not sure how this happened. She denies any trauma. She tells me that she thinks she hit her foot to the edge of the table when she first got disc harged from the hospital and she was dusting at home. Even the cellulitis on top of her foot has improved patient is currently on vancomycin and Zosyn Blood cultures are pending Appreciate podiatry recommendations I still think the patient might have had some cellulitis on top of it that had significantly improved with no surgical intervention. Consider discharging the patient on doxycycline and levofloxacin for 7 days. Qualifiers: Encounter type: initial encounter Metatarsal bone: second Fracture type: closed Fracture alignment: displaced Qualified Code(s): S92.321A - Displaced fracture of second metatarsal bone, right foot, initial encounter for closed fracture SNOMED Code(s): 738110181 (2) Immunosuppression due to drug therapy Current Visit: No Status: Chronic SNOMED Code(s): 60698233, 23239689 (3) Rheumatoid arthritis Current Visit: No Status: Chronic Qualifiers: Rheumatoid arthritis location: wrist Rheumatoid factor presence: unspecified presence Laterality: unspecified laterality Qualified Code(s): M06.9 - Rheumatoid arthritis, unspecified SNOMED Code(s): 14269939 (4) H/O total knee replacement Current Visit: No Status: Acute Qualifiers: Laterality: bilateral Qualified Code(s): Z96.653 - Presence of artificial knee joint, bilateral SNOMED Code(s): 2523398974202, 6950992103113, 77795074007295 (5) Cellulitis Current Visit: No Status: Acute Qualifiers: Site of cellulitis: extremity Site of cellulitis of extremity: lower extremity Laterality: right Qualified Code(s): L03.115 - Cellulitis of right lower limb SNOMED Code(s): 617990913 Past Med Surg Social Fam HX - Past Medical History Medical history: arthritis, fibromyalgia, GERD, RA, renal disease, TIA Additional medical history: insufficient pancreatic enzyme. Stage 3 Renal disease Psychiatric history: anxiety, depression - Past Surgical History Surgical History: , cholecystectomy, hysterectomy, knee replacement, other Additional surgical history: aortic repair 2015. bowel resection. gastric bypass - Social History Smoking Status: Never smoker Smokeless Tobacco Status: No Alcohol use: rarely Drug use: none - Family History Mother Family Member Ethnicity: Non- Hx Family Cardiac Disorders: Yes (Angina, HD) Hx Family Endocrine Disorder: Yes (DM) Sister Family Member Ethnicity: Non- Living Status: Hx Family Cardiac Disorders: Yes (HD) Hx Family Endocrine Disorder: Yes (DM) Father Family Member Ethnicity: Non- Living Status: Hx Family Cardiac Disorders: Yes (HD, ME) Hx Family Endocrine Disorder: Yes (DM) Consult Discharge Plan - Plan Referrals: NONE,PCP [Primary Care Provider] -
[2019-04-11] MEDS: Methocarbamol 750 MG TABLET PO SCH (21:13)
[2019-04-11] MEDS: traZODone 50 MG TABLET PO SCH (21:14)
[2019-04-12 03:32] LABS: BUN/Creatinine Ratio 22 (6-26); Basophils % 0.8 %; Blood Urea Nitrogen 21 mg/dL (8-23); Calcium 8.6 mg/dL (8.6-10.3); Carbon Dioxide 27 mEq/L (23-29); Chloride 109 mEq/L (98-107); Eosinophils # 0.2 K/mcL (0.0-0.6); Eosinophils % 5.8 %; Glucose 87 mg/dL (70-105); Hematocrit 34.6 % (35.3-44.9); Hemoglobin 11.2 g/dL (11.5-15.4); Lymphocytes # 1.4 K/mcL (0.6-4.6); Mean Corpuscular HGB Conc 32.4 g/dL (31.6-35.5); Mean Corpuscular Hemoglobin 33.8 pg (28.0-33.3); Mean Corpuscular Volume 104.5 fL (83.0-100.0); Mean Platelet Volume 11.5 fL (9.4-12.4); Monocytes # 0.4 K/mcL (0.0-1.3); Monocytes % 11.7 %; Neutrophils # 1.5 K/mcL (1.6-8.9); Osmolality,Calculated 294 (280-300); Platelet Count 150 K/mcL (140-400); Red Blood Count 3.31 M/mcL (3.82-4.97); Red Cell Distribution Width 11.8 % (11.5-14.5); Segmented Neutrophils % 41.7 %; Sodium 141 mEq/L (136-145); White Blood Count 3.6 K/mcL (4.3-11.1); eGFR For African Americans > 60 (> 60); eGFR For Non-African Americans 59 (> 60)
[2019-04-12] MEDS: Piperacillin/Tazobactam 3.375 GM in 0.9 % Sodium Chloride Mini Bag 100 ML IVPB SCH (04:14)
[2019-04-12] MEDS: *HR* Heparin 5,000 UNIT/ML VIAL SQ SCH (06:03)
[2019-04-12 08:06] VITALS: BP 181/93
[2019-04-12] MEDS: Pregabalin 75 MG CAPSULE PO SCH (08:36)
[2019-04-12] MEDS: Folic Acid 1 MG TABLET PO SCH (08:36)
[2019-04-12] MEDS: BuPROPion XL (24 HR) 150 MG TABLET PO SCH (08:36)
--- NOTE | 2019-04-12 09:55 | Discharge Summary ---
- NOTES TO OUTPATIENT PROVIDER Notes to Outpatient Provider: Follow up with Podiatry next week for outpatient surgery. Doxycycline and Levaquin X1 week per infectious disease Orders not resulted at time of discharge: Pending orders 04/10/19 12:50 Culture,Blood [BC] Routine 04/10/19 15:25 Culture,Wound [RM] Routine Date of Encounter: 04/12/19 Time of Encounter: 09:52 - Discharge Diagnosis (1) Cellulitis Priority: Primary Status: Acute Qualifiers: Site of cellulitis: extremity Site of cellulitis of extremity: lower extremity Laterality: right Qualified Code(s): L03.115 - Cellulitis of right lower limb (2) Rheumatoid arthritis Priority: Secondary Status: Chronic Qualifiers: Rheumatoid arthritis location: hand Rheumatoid factor presence: unspecified presence Laterality: bilateral Qualified Code(s): M06.9 - Rheumatoid arthritis, unspecified (3) Immunosuppression due to drug therapy Priority: Secondary Status: Chronic (4) Traumatic hematoma of right knee Priority: Secondary Status: Acute Qualifiers: Encounter type: subsequent encounter Qualified Code(s): S80.01XD - Contusion of right knee, subsequent encounter (5) Neuropathy Priority: Secondary Status: Chronic (6) Pancreatic insufficiency Priority: Secondary Status: Chronic Hospital course: Ms. Serrano is a 64 year old female past medical history of traumatic hematoma of the right knee rheumatoid arthritis CTD face 3 GERD TIAs fibromyalgia-patient was admitted to this facility in February after sustaining a traumatic injury to her right knee and developing hematoma undergoing evacuation per orthopedics. At that time her blood cultures were negative however there was concerned because of patient did have a prosthetic knee and she was seen by infectious disease and was placed on Keflex and doxycycline for 4 weeks. During treatment on 03/17/2019 patient began to experience pain and swelling erythremia, boil with fluctuance over the dorsum of the right foot she was seen by her PCP and was prescribed clindamycin with no improvement. Patient was reevaluated by infectious disease and was advised to go to the ER due to failed treatment with antibiotics. She did undergo CT of the leg which revealed subacute appearing mildly comminuted and mildly displaced obliquely oriented fracture involving the distal shaft of the second metatarsal associated soft tissue swelling about the fracture. Subcutaneous edema somewhat diffusely about the foot most prominent in the dorsal mid to forefoot no focal fluid collection to suggest abscess or may [place] on this noncontrast exam no definite discrete open wound/ulcer identified. Patient was seen by podiatry who recommended outpatient surgery which has been scheduled for next week. She was evaluated by infectious disease recommendations of doxycycline and level Floxin for 7 days. Patient was evaluated by PT and OT recommending home health. She will follow-up with her primary care provider. Currently she is hemodynamically stable and pain is controlled. She is ready for discharge - Time Spent with Patient Total time spent providing and/or coordinating discharge services: - Discharge Medications Prescriptions: New Doxycycline 100 mg PO BID 7 Days #14 capsule Levofloxacin [Levaquin] 500 mg PO DAILY 7 Days #7 tablet Continued Nystatin Cream [Mycostatin Cream] 1 appl TP BID PRN PRN Reason: Rash Hydroxychloroquine [Plaquenuil] 400 mg PO DAILY Folic Acid 1 mg PO DAILY Pregabalin [Lyrica] 150 mg PO BID Pantoprazole Sodium [Protonix] 40 mg PO DAILY Multivitamin [Multi-Day Vitamins] 1 tab PO DAILY Lipase/Protease/Amylase [[place] j Dr 36,000 Units Capsule] 1 cap PO TIDWM Lipase/Protease/Amylase [[place] j Dr 24,000 Units Capsule] 1 cap PO BID MDD with snacks L. Acidophilus/Pectin, [place] [Acidophilus Probiotic Capsule] 1 cap PO DAILY Glucosamn/Condroitn/C/Mn/[place] [Cvs Glucosamine Chondroitin Tb] 1 tab PO BID Duloxetine HCl [Cymbalta] 60 mg PO BID Bupropion HCl [Wellbutrin Xl] 300 mg PO DAILY Lidocaine Patch [Lidoderm 5% patch] 1 each TP DAILY PRN #5 adh..patch PRN Reason: Pain Methocarbamol [Robaxin-750] 750 mg PO HS traZODone [TraZODone] 50 - 100 mg PO HS Meclizine [Antivert] 25 mg PO TID #15 tablet Dicyclomine Hcl [Bentyl] 20 mg PO AD Furosemide [Lasix] 20 mg PO BID PRN PRN Reason: Edema Lisinopril [Zestril] 5 mg PO DAILY Ondansetron HCl 4 mg PO Q8H PRN PRN Reason: Nausea Clopidogrel [Plavix] 75 mg PO HS BuPROPion XL (24 HR) [Wellbutrin Xl] 150 mg PO DAILY HYDROcodone/Acet 10/325 mg [[place] 10-325 mg] 1 tab PO Q8H PRN PRN Reason: Mild To Moderate Pain Discontinued Clindamycin HCl 300 mg PO QID Home Medications: Bupropion HCl [Wellbutrin Xl] 300 mg PO DAILY 12/15/16 [History] Duloxetine HCl [Cymbalta] 60 mg PO BID 12/15/16 [History] Folic Acid 1 mg PO DAILY 12/15/16 [History] Glucosamn/Condroitn/C/Mn/[place] [Cvs Glucosamine Chondroitin Tb] 1 tab PO BID 12/15/16 [History] Hydroxychloroquine [Plaquenuil] 400 mg PO DAILY 12/15/16 [History] L. Acidophilus/Pectin, [place] [Acidophilus Probiotic Capsule] 1 cap PO DAILY 12/15/16 [History] Lipase/Protease/Amylase [Cyn Rodriguez 24,000 Units Capsule] 1 cap PO BID MDD with snacks 12/15/16 [History] Lipase/Protease/Amylase [Cyn Rodriguez 36,000 Units Capsule] 1 cap PO TIDWM 12/15/16 [History] Multivitamin [Multi-Day Vitamins] 1 tab PO DAILY 12/15/16 [History] Nystatin Cream [Mycostatin Cream] 1 appl TP BID PRN 12/15/16 [History] Pantoprazole Sodium [Protonix] 40 mg PO DAILY 12/15/16 [History] Pregabalin [Lyrica] 150 mg PO BID 12/15/16 [History] Lidocaine Patch [Lidoderm 5% patch] 1 each TP DAILY PRN #5 adh..patch 02/01/17 [Rx] Methocarbamol [Robaxin-750] 750 mg PO HS 02/26/18 [History] traZODone [TraZODone] 50 - 100 mg PO HS 02/26/18 [History] Meclizine [Antivert] 25 mg PO TID #15 tablet 10/13/18 [Rx] Clopidogrel [Plavix] 75 mg PO HS 03/10/19 [History] Dicyclomine Hcl [Bentyl] 20 mg PO AD 03/10/19 [History] Furosemide [Lasix] 20 mg PO BID PRN 03/10/19 [History] Lisinopril [Zestril] 5 mg PO DAILY 03/10/19 [History] Ondansetron HCl 4 mg PO Q8H PRN 03/10/19 [History] BuPROPion XL (24 HR) [Wellbutrin Xl] 150 mg PO DAILY 04/10/19 [History] HYDROcodone/Acet 10/325 mg [[place] 10-325 mg] 1 tab PO Q8H PRN 04/11/19 [History] Doxycycline 100 mg PO BID 7 Days #14 capsule 04/12/19 [Rx] Levofloxacin [Levaquin] 500 mg PO DAILY 7 Days #7 tablet 04/12/19 [Rx] Allergies/Adverse Reactions: Allergy/AdvReac Type Severity Reaction Status Date / Time Erythromycin Base Allergy Rash Verified 04/11/19 08:58 Fish Containing Products Allergy Hives Verified 04/11/19 08:58 fish derived Allergy Hives Verified 04/11/19 08:58 fish oil Allergy Hives Verified 04/11/19 08:58 hydromorphone [From Dilaudid] Allergy Rash Verified 04/11/19 08:58 morphine Allergy Rash Verified 04/11/19 08:58 Date of admission: 04/10/19 12:23 Primary care physician: PCP NONE Consults: 04/10/19 12:31 Consult to Infectious Diseases [CONS] Routine Consulting Provider: Infectious Disease [place] Reason for Consult: R foot wound Call Completed: Yes 04/10/19 14:47 Consult to Podiatry [CONS] Routine Consulting Provider: Podiatry [facility] Reason for Consult: R foot pain Call Completed: Yes 04/11/19 09:49 Consult to Occupational Therapy [CONS] Routine Comment: Evaluate, develop and implement POC Reason for Consult: WEAKNESS, BROKEN FOOT Does patient have active BEDREST order?: No Is patient medically & hemodynamically stable?: Yes Consult to Physical Therapy [CONS] Routine Comment: Evaluate, develop and implement POC Reason for Consult: WEAKNESS, BROKEN FOOT Does patient have active BEDREST order?: No Is patient medically & hemodynamically stable?: Yes Discharging clinician: Cleo Palacios Anticipated date of discharge: 04/12/19 - Constitutional Vitals: Temp Pulse Resp BP Pulse Ox 98.2 F 74 18 181/93 96 04/12/19 08:05 04/12/19 08:05 04/12/19 08:05 04/12/19 08:05 04/12/19 08:05 General appearance: Present: A&O X 3, answers questions appropriately Exam: Skin: Free of rash and discoloration. Eyes: Sclera is white. There is no discharge from eyes. ENMT: Oral/pharyngeal mucosa is normal in appearance. There is no discharge from nose or ears. Respiratory: Normal breath sounds with no crackles and wheezes bilaterally. CV: Heart is regular with no gallop or murmur. GI: Abdomen is flat and soft with no palpable mass or visceromegaly. : There is no tenderness in patient's flanks bilaterally. Neuro exam: He has good strength in upper and lower extremities. He has normal eye movements. Psychiatric: He has normal affect. His thought process is appropriate to the situation. - Patient Status Disposition: Home Health Service Functional capacity at discharge: independent ambulation Overall status at discharge: patient is back to baseline - Discharge Instructions Follow Up With: Clari Carroll MD [Partnered Physician] - 05/15/19 2:20 pm Pedro Chicas DO [Partnered Physician] - 04/16/19 3:40 pm Baltazar Oliveira MD [Partnered Physician] - 06/26/19 1:00 pm Miguelangel Blackwell MD [Partnered Physician] - 05/27/19 3:00 pm Melvin Anderson DO [Partnered Physician] - 06/10/19 1:55 pm Emely Caceres MD [Partnered Physician] - 06/19/19 1:30 pm Nadeem Jean MD [Partnered Physician] - 04/17/19 10:20 am - Diet and Activity Activity: as per physical therapy Diet: advance to your usual diet
--- NOTE | 2019-04-12 10:43 | Physician Discharge Referral ---
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 For more information, call the [place] Tobacco Quit Line at 4-009-OCGE-NOW. - Services Needed Following services are medically necessary services: Nursing, Physical Therapy - Transfer Medications Prescriptions: Doxycycline 100 mg PO BID 7 Days #14 capsule Levofloxacin [Levaquin] 500 mg PO DAILY 7 Days #7 tablet Home Medications: Bupropion HCl [Wellbutrin Xl] 300 mg PO DAILY 12/15/16 [History] Duloxetine HCl [Cymbalta] 60 mg PO BID 12/15/16 [History] Folic Acid 1 mg PO DAILY 12/15/16 [History] Glucosamn/Condroitn/C/Mn/[place] [Cvs Glucosamine Chondroitin Tb] 1 tab PO BID 12/15/16 [History] Hydroxychloroquine [Plaquenuil] 400 mg PO DAILY 12/15/16 [History] L. Acidophilus/Pectin, [place] [Acidophilus Probiotic Capsule] 1 cap PO DAILY 12/15/16 [History] Lipase/Protease/Amylase [Cyn Rodriguez 24,000 Units Capsule] 1 cap PO BID MDD with snacks 12/15/16 [History] Lipase/Protease/Amylase [Cyn Rodriguez 36,000 Units Capsule] 1 cap PO TIDWM 12/15/16 [History] Multivitamin [Multi-Day Vitamins] 1 tab PO DAILY 12/15/16 [History] Nystatin Cream [Mycostatin Cream] 1 appl TP BID PRN 12/15/16 [History] Pantoprazole Sodium [Protonix] 40 mg PO DAILY 12/15/16 [History] Pregabalin [Lyrica] 150 mg PO BID 12/15/16 [History] Lidocaine Patch [Lidoderm 5% patch] 1 each TP DAILY PRN #5 adh..patch 02/01/17 [Rx] Methocarbamol [Robaxin-750] 750 mg PO HS 02/26/18 [History] traZODone [TraZODone] 50 - 100 mg PO HS 02/26/18 [History] Meclizine [Antivert] 25 mg PO TID #15 tablet 10/13/18 [Rx] Clopidogrel [Plavix] 75 mg PO HS 03/10/19 [History] Dicyclomine Hcl [Bentyl] 20 mg PO AD 03/10/19 [History] Furosemide [Lasix] 20 mg PO BID PRN 03/10/19 [History] Lisinopril [Zestril] 5 mg PO DAILY 03/10/19 [History] Ondansetron HCl 4 mg PO Q8H PRN 03/10/19 [History] BuPROPion XL (24 HR) [Wellbutrin Xl] 150 mg PO DAILY 04/10/19 [History] HYDROcodone/Acet 10/325 mg [[place] 10-325 mg] 1 tab PO Q8H PRN 04/11/19 [History] Doxycycline 100 mg PO BID 7 Days #14 capsule 04/12/19 [Rx] Levofloxacin [Levaquin] 500 mg PO DAILY 7 Days #7 tablet 04/12/19 [Rx] Allergies/Adverse Reactions: Allergy/AdvReac Type Severity Reaction Status Date / Time Erythromycin Base Allergy Rash Verified 04/11/19 08:58 Fish Containing Products Allergy Hives Verified 04/11/19 08:58 fish derived Allergy Hives Verified 04/11/19 08:58 fish oil Allergy Hives Verified 04/11/19 08:58 hydromorphone [From Dilaudid] Allergy Rash Verified 04/11/19 08:58 morphine Allergy Rash Verified 04/11/19 08:58 Certification: Further, I certify that my clinical findings support that this patient is homebound (i.e. absences from home require considerable and taxing effort and are for medical reasons or sikhism services or infrequently or short duration when for other reasons) because: Homebound Reason: Leaving home requires considerable and taxing effort due to condition Attestation: My signature below is to certify that this patient is under my care and that I, or nurse practitioner, or a physician's magistrate assistant working with me, has a [id number] encounter with this patient.
[2019-04-12] MEDS ORDERED: Aminoglycoside Consult 1 EACH MC ONE (12:42)
== END 2019-04-12 12:43 | disposition home health service (06) | DRG 603 ==
LOC: 3BNU
PROVIDERS: ADMIT Internal Medicine; ATTEND Internal Medicine

== ENCOUNTER 2019-09-09 08:48 | Inpatient (IN) ==
[2019-09-09] MEDS ORDERED: Ropivacaine/PF 0.5% 30 ML VIAL ONE (09:00)
[2019-09-09] MEDS ORDERED: ROPIVACAINE/PF/NS 0.25% 1 EACH SYRINGE INTRAART ONE (09:00)
[2019-09-09] MEDS ORDERED: CeFAZolin Syr 2,000MG/20 ML 2,000 MG/20 ML SYRINGE IVPB ONE (09:16)
[2019-09-09] MEDS ORDERED: Albuterol 2.5 MG/3 ML NEBULIZER IH PRN (09:16)
[2019-09-09] MEDS ORDERED: Ringers Solution, Lactated 1,000 ML IVC SCH ×2 (09:30→13:15)
[2019-09-09] MEDS ORDERED: Acetaminophen IV 1,000 MG/100 ML INFUS..BTL IVPB ONE (09:31)
[2019-09-09] MEDS ORDERED: *HR* Promethazine 25 MG/ML VIAL IVP PRN (09:31)
[2019-09-09] MEDS ORDERED: *HR* Labetalol 20 MG/4 ML SYRINGE IVP PRN (09:31)
[2019-09-09] MEDS ORDERED: Ethanol\\Acetic Acid\\Na Ace\\Ben 1,000 ML IRRIG.SOLN IR ONE (09:31)
[2019-09-09] MEDS ORDERED: *HR* FentaNYL (PF) 100 MCG/2 ML VIAL IVP PRN (09:33)
[2019-09-09] MEDS: *HR* OxyCODONE Immed Rel 5 MG TABLET PO PRN ×2 (12:30→12:55)
[2019-09-09 12:59] LABS: Hematocrit 30.2 % (35.3-44.9); Hemoglobin 10.9 g/dL (11.5-15.4)
[2019-09-09] MEDS ORDERED: Naloxone 0.4 MG/ML INJ IVP PRN (13:15)
[2019-09-09] MEDS ORDERED: *HR* OxyCODONE/APAP 5/325 TABLET PO PRN (13:15)
[2019-09-09] MEDS ORDERED: Ondansetron ODT 4 MG TAB.RAPDIS PO PRN (13:15)
[2019-09-09] MEDS ORDERED: MOM Conc 10 ML UD.LIQ PO PRN (13:15)
[2019-09-09] MEDS ORDERED: Temazepam 15 MG CAPSULE PO PRN (13:15)
[2019-09-09] MEDS ORDERED: *HR* OxyCODONE Immed Rel 5 MG TABLET PO PRN (13:15)
[2019-09-09] MEDS ORDERED: Ondansetron 4 MG/2 ML VIAL IVP PRN (13:15)
[2019-09-09] MEDS ORDERED: Furosemide 20 MG TABLET PO PRN (13:15)
[2019-09-09] MEDS ORDERED: Sennosides 8.6 MG TABLET PO PRN (13:15)
[2019-09-09 15:39] VITALS: BP 138/74
[2019-09-09] MEDS ORDERED: *HR* Enoxaparin 30 MG/0.3 ML SYRINGE SQ SCH ×2 (18:00)
[2019-09-09] MEDS ORDERED: Methocarbamol 750 MG TABLET PO SCH (21:00)
[2019-09-09] MEDS ORDERED: Pregabalin 75 MG CAPSULE PO SCH (21:00)
[2019-09-09] MEDS ORDERED: traZODone 50 MG TABLET PO SCH (21:00)
[2019-09-10] MEDS ORDERED: ARIPiprazole 2 MG TABLET PO SCH (09:00)
[2019-09-10] MEDS ORDERED: Multivit/Ca/Min/Fe/FA 1 TAB TABLET PO SCH (09:00)
[2019-09-10] MEDS ORDERED: Folic Acid 1 MG TABLET PO SCH (09:00)
[2019-09-10] MEDS ORDERED: BuPROPion XL (24 HR) 150 MG TABLET PO SCH ×2 (09:00)
[2019-09-11] MEDS ORDERED: Ergocalciferol (VIT D2) 50,000 UNIT (1.25MG) CAP PO SCH (10:00)
== END 2019-09-09 19:21 | disposition home health service (06) | DRG 483 ==
LOC: SAMDAY 08:48 → 3NENU 13:03
PROVIDERS: ADMIT Orthopaedic Surgery; ATTEND Orthopaedic Surgery